=== PATIENT | male | born 1955 | race Hispanic/Latino ===

== ENCOUNTER 2017-03-13 19:30 | Outpatient (CLI) | payer OTHER | END 2017-03-13 19:31 | disposition home or self-care (01) | LOC: SLEEPLAB 19:30 | PROVIDERS: ATTEND Internal Medicine | DX: G47.33 Obstructive sleep apnea (adult) (pediatric) (principal); G47.10 Hypersomnia, unspecified; I25.10 Atherosclerotic heart disease of native coronary artery without angina pectoris; E11.9 Type 2 diabetes mellitus without complications; G47.00 Insomnia, unspecified; I48.91 Unspecified atrial fibrillation; I10 Essential (primary) hypertension; R06.83 Snoring | CPT/HCPCS: 95811 ==

== ENCOUNTER 2017-12-09 23:24 | Inpatient (IN) | payer OTHER ==
[2017-12-10 01:18] LABS: CKMB 1.8 ng/mL (0-6.6)
[2017-12-10] MEDS ORDERED: Diltiazem HCl 125 MG, Admixture Fee 1 EACH in Sodium Chloride 0.9% 100 ML IVPB SCH (01:30)
[2017-12-10] MEDS ORDERED: Digoxin 0.5 MG/2 ML AMP ONE (02:48)
[2017-12-10] MEDS ORDERED: Ondansetron HCl/PF 4 MG/2 ML Vial IVP PRN ×2 (06:52→07:45)
[2017-12-10] MEDS ORDERED: Ondansetron ODT 4 MG TAB PO PRN ×2 (06:53→07:45)
[2017-12-10] MEDS ORDERED: Lactated Ringer's 1,000 ML IV SCH (07:00)
[2017-12-10 07:09] VITALS: BMI 32.6
[2017-12-10] MEDS ORDERED: Digoxin 0.5 MG/2 ML AMP SLOW IVP SCH (07:30)
[2017-12-10] MEDS ORDERED: cloNIDine 0.1 MG TAB PO PRN (07:45)
[2017-12-10] MEDS ORDERED: Dextrose 5% in Water 1,000 ML IV PRN (07:45)
[2017-12-10] MEDS ORDERED: Dextrose 50% Abboject 50 ML SYRINGE SLOW IVP PRN (07:45)
[2017-12-10] MEDS ORDERED: HumaLOG 300 UNITS/3 ML VIAL SC PRN ×2 (07:45)
[2017-12-10] MEDS ORDERED: Labetalol HCl 100 MG/20 ML VIAL SLOW IVP PRN (07:45)
[2017-12-10] MEDS ORDERED: Acetaminophen 325 MG TAB PO PRN (07:45)
--- NOTE | 2017-12-10 08:31 | HP ---
PRIMARY CARE PHYSICIAN: Dr. Esther Gordillo CHIEF COMPLAINT: Rapid heartbeat. HISTORY OF PRESENT ILLNESS: Mr. Deutsch is a very pleasant 62-year-old gentleman that has a history of atrial fibrillation as well as coronary artery disease. He has had a coronary artery bypass graftin g back in October of last year. He says he was doing fine since his surgery. He has seen Dr. Bruce in the last 3 months and had a recent nuclear stress test which was negative in the past month. He say s he was just sitting down watching TV and he usually checks his heart rate fairly regularly. He has a Fitbit and he noticed that his heart rate was in the 150s. At that time, he was completely asympt omatic. He did not have any chest pain, no shortness of breath, no dizziness, no lightheadedness, no nausea, no vomiting, and because of his heart rate he went to the emergency room in [place]. He w as found to be in atrial fibrillation with rapid ventricular response. He was placed on a Cardizem d rip and he was transferred here for further evaluation. While in the ER; however, his blood pressure dropped on Cardizem. It went from about the 140s systolic down into the 80s and 90s and for this re ason the Cardizem drip was discontinued. Currently, his heart rate is back in the 150s and he is not on any medications for it. He denies any PND or orthopnea. He is generally fairly sedentary. He s ays that he has a house in which there are stairs in the house one flight, which he just goes up and down, maybe twice during the day and he does have noticed an increase in his heart rate, but no other symptoms with that. REVIEW OF SYSTEMS: All systems were reviewed and are negative except for that mentioned in the histo ry of present illness. PAST MEDICAL HISTORY: Significant for atrial fibrillation, chronic diastolic heart failure, coronary artery disease, diabetes mellitus, and hyperlipidemia. PAST SURGICAL HISTORY: He has had a bypass surgery in 10/2016, stents placed to the legs as well as eye surgery. ALLERGIES: No known drug allergies. SOCIAL HISTORY: He is a former smoker. He quit before his bypass surgery a year ago. Denies any al cohol use. He is . CODE STATUS: As far as code status, he wants CPR, but does not want to be placed on a ventilator. FAMILY HISTORY: Significant for coronary artery disease in his mother. MEDICATIONS: Aspirin 81 mg a day, Lipitor 20 mg daily, Pletal 100 mg twice a day, Benadryl 25 mg as needed. Latanoprost eyedrops 0.005% in both eyes at bedtime, lisinopril 20 mg twice a day, Farxiga 1 0 mg daily, Lasix 20 mg as needed, metformin 1000 mg twice daily, glimepiride 4 mg daily, omeprazole 40 mg daily, carvedilol 6.25 mg twice daily, and timolol eyedrops 0.05% daily. PHYSICAL EXAMINATION: GENERAL: He is alert and oriented. He appears to be in no acute distress. He is well-developed and well-nourished. VITAL SIGNS: Blood pressure was approximately 125/50, heart rate is 150, respiratory rate is 16, and he is afebrile. HEENT: Pupils are equal, round, and reactive. Extraocular muscles are intact. Sclerae are anicteri c. Throat; no erythema, no exudates. NECK: No adenopathy, no bruits. LUNGS: Clear to auscultation. There is no wheezing, no rales. CARDIOVASCULAR: He has got a rapid heartbeat. It is irregular. There are no murmurs, clicks or rub s. ABDOMEN: Obese, it is soft, it is nontender, nondistended. Positive for bowel sounds. There is no rebound or guarding. EXTREMITIES: There is no clubbing, cyanosis, no edema. NEUROLOGIC: The exam is nonfocal. SKIN AND INTEGUMENT: No skin changes. No rash. LABORATORY RESULTS: His lab results from the [place] [facility] were reviewed. His sodium was 140, potassium 4.4, chloride is 101, CO2 is 26, BUN of 24, creatinine 1.3, glucose is 159, calcium 1 0.4, magnesium 1.9, total protein was elevated at 9.1. White blood cell count 8.7, hemoglobin 15.7, hematocrit is 46.7, platelet count is 192. D-dimer was 0.02, 0.26. He had an EKG which was atrial f ibrillation with a heart rate of around 150. Chest x-ray was reported as being negative. ASSESSMENT AND PLAN: 1. This is a pleasant 62-year-old gentleman who presents to the emergency room with atrial fibrillat ion with rapid ventricular response. He is asymptomatic from this. Currently, hemodynamically stabl e even though his heart rate is in the 150s. He is being admitted to the [facility] [place]. Since his blood pres sure dropped on Cardizem we will give him IV digoxin for now and Cardiology will be consulted for fur ther recommendations. If necessary, he may require amiodarone. 2. Diabetes mellitus, we will hold on metformin in the event that he needs a contrast study. He can continue his own Farxiga and glimepiride and we will place him on a sliding scale insulin. 3. The patient has a history of atrial fibrillation, but was not on anticoagulation. This may have been by his choice. 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 4. We will continue a PPI as he had been on omeprazole before and place him on deep venous thrombosi s prophylaxis. Further recommendations are to follow.
[2017-12-10] MEDS ORDERED: Non-Formulary Item 1 EACH (Dapagliflozin Propanediol [Farxiga] 10 MG) PO SCH (09:00)
[2017-12-10] MEDS: Lisinopril 20 MG TAB PO SCH (09:00)
[2017-12-10] MEDS: Docusate 100 MG CAP PO SCH ×2 (09:00→20:29)
[2017-12-10] MEDS ORDERED: Enoxaparin Sodium 30 MG/0.3 ML SYRINGE SC SCH (09:00)
[2017-12-10] MEDS ORDERED: FARXIGA 10 MG PO SCH (09:00)
[2017-12-10] MEDS: Aspirin 81 mg Enteric Coated Tablet PO SCH (09:01)
[2017-12-10] MEDS: Carvedilol 6.25 MG TAB PO SCH ×2 (09:01→20:29)
[2017-12-10] MEDS: Glimepiride 4 MG TAB PO SCH (09:01)
[2017-12-10] MEDS: Atorvastatin Calcium 20 MG TAB PO SCH (09:12)
[2017-12-10] MEDS: Cilostazol 100 MG TAB PO SCH ×2 (09:20→17:04)
[2017-12-10] MEDS ORDERED: Amiodarone In Dextrose 200 ML IVPB SCH (12:30)
--- NOTE | 2017-12-10 12:46 | CON ---
DATE OF CONSULTATION: 12/10/2017 REASON FOR CONSULTATION: Atrial flutter. HISTORY OF PRESENT ILLNESS: Mr. Deutsch is a very pleasant 62-year-old white gentleman who comes to [facility] for tachycardia. He was at home watching TV feeling at his normal baseline. He clicked t he button on his Fitbit to see what his heart was doing and he noted that his heart rate was 150. He did not really feel palpitations. He just hit the Fitbit every now and then. He got his blood pres sure cuff, his blood pressure was fine in the 130s, but his heart rate remained in the 150s, so he de cided to come in for evaluation. He was brought in and was found to be in atrial flutter, heart rate in the 150s, so he was started on a Cardizem drip which made him hypotensive, did not really slow hi m down that much, so he was admitted to the [facility] for further evaluation and care. He is otherwise cu rrently asymptomatic. He is just lying on the bed with no palpitations, no shortness of breath. He is going really fast. No chest pain, tightness or pressure. He recently had a stress test in the [facility] which showed an EF of 45% with an inferior scar, but no reversible ischemia. PAST MEDICAL HISTORY: 1. History of paroxysmal atrial fibrillation. 2. Ischemic cardiomyopathy. 3. Status post bypass surgery. 4. Type 2 diabetes. 5. Hyperlipidemia. PAST SURGICAL HISTORY: 1. CABG in 10/2016. 2. Peripheral vascular disease, stents on the legs in the past. 3. Eye surgery. OUTPATIENT MEDICATIONS: 1. Aspirin 81 a day. 2. Lipitor 20 mg. 3. Pletal 100 mg twice a daily. 4. Benadryl. 5. Latanoprost eye drops. 6. Lisinopril 20 mg b.i.d. 7. Farxiga. 8. Lasix 20 mg p.r.n. 9. Metformin 1000 mg b.i.d. 10. Glimepiride 4 mg daily. 11. Omeprazole. 12. Carvedilol 6.25 mg b.i.d. 13. Timolol eyedrops. ALLERGIES: No known drug allergies. SOCIAL HISTORY: Former smoker, quit a year after his bypass surgery. No alcohol or drugs. FAMILY HISTORY: Coronary disease in his mother. REVIEW OF SYSTEMS: A 12-point review of systems was done and is all negative unless stated in the hi story of present illness. PHYSICAL EXAMINATION: VITAL SIGNS: Temperature 97.8, pulse 150, respiratory rate 15, satting 100% on room air, blood press ure 115/77. GENERAL: Awake, alert, oriented x3, in no distress. HEENT: Normocephalic, atraumatic. NECK: Supple. LUNGS: Clear. CARDIOVASCULAR: S1, S2, no S3, S4. There is a heart rate in the 150s, tachycardic and irregular. ABDOMEN: Soft, positive bowel sounds. EXTREMITIES: No edema. SKIN: Warm and dry. LABORATORY WORK: Reviewed. CK-MB and troponins were unremarkable. Glucose was 221. Metabolic prof ile on 12/09/2017 in [place] shows a BUN 24, creatinine 1.3, sodium 140, potassium 4.4, chloride 10 1, CO2 26, calcium 10.4, magnesium 1.9, total bilirubin, AST, ALT, alkaline phosphatase are all withi n normal limits. Albumin was 4.7. Troponin was normal in [place] x1. Normal x1 here. CBC with a white count of 8, hemoglobin of 15, hematocrit 46, platelet count 192. TSH was 1.97. D-dimer was a ctually on the low side, a normal INR. Chest x-ray showed no findings. EKG was reviewed; atrial flutter with 2:1 block. ASSESSMENT AND PLAN: Atrial flutter with 2:1 AV block. We will plan on starting him on amiodarone d rip and plans to do a KAVITA cardioversion in the morning. He has had a left atrial appendage ligation, so the KAVITA is just being done to confirm that he does not require long-term anticoagulation as we merritt ve never taken a closer look at the appendage since his surgery. I will start him on Eliquis at 5 mg b.i.d., first dose tonight just in case he does have a flow throughout appendage. He will need to b e on anticoagulation longer term. Otherwise, hopefully he will convert with the amiodarone drip and we will not have to do a cardioversion. Otherwise we have spoken at length about this and he agrees to proceed. Thank you for letting us participate in the care of your patient. We will follow.
[2017-12-10] MEDS: Amiodarone HCl 450 MG, Admixture Fee 1 EACH in Dextrose 5% in Water 250 ML IVPB SCH ×2 (13:10→20:33)
[2017-12-10 13:46] LABS: ALT (SGPT) 21 U/L (8-55); AST (SGOT) 19 U/L (5-34); Albumin 4.2 g/dL (3.4-4.8); Alkaline Phosphatase 72 U/L (40-150); Bilirubin, Direct 0.3 mg/dL (0.1-0.3); Magnesium 1.7 mg/dL (1.6-2.6); Potassium 4.6 mmol/L (3.5-5.1); Protein, Total 7.8 g/dL (5.8-8.1)
[2017-12-10] MEDS: Apixaban 5 MG TAB PO SCH (20:29)
[2017-12-10] MEDS: FARXIGA 10 MG PO SCH (20:29)
[2017-12-11] MEDS: Lisinopril 20 MG TAB PO SCH ×2 (00:11→08:52)
[2017-12-11 04:15] LABS: #Basophils 0.1 thou/uL (0.0-0.2); #Eosinphils 0.1 thou/uL (0.0-0.7); #Monocytes 0.6 thou/uL (0.11-0.59); %Basophils 0.9 % (0.0-1.0); %Eosinophils 1.6 % (0.0-10.0); %Lymphocytes 29.5 % (21.0-51.0); %Monocytes 8.8 % (0.0-10.0); %Neutrophils 59.2 % (42.0-75.0); Hemoglobin 13.5 g/dL (14.0-18.0); Mean Corpuscular Hemoglobin 31.5 pg (27.0-31.0); Mean Corpuscular Volume 89.9 fL (78.0-98.0); Mean Platelet Volume 7.9 fL (7.4-10.4); Platelet Count 138 thou/uL (130-400); RBC Distribution Width 12.5 % (11.5-14.5); Red Blood Cell (RBC) Count 4.29 mill/uL (4.70-6.10); White Blood Cell (WBC) Count 6.8 thou/uL (4.8-10.8)
[2017-12-11 04:32] LABS: Anion Gap 16 mmol/L (10-20); BUN (Urea Nitrogen) 18 mg/dL (8.4-25.7); Calc. Creatinine Clearance 110 mL/min (70-130); Calcium 8.9 mg/dL (7.8-10.44); Carbon Dioxide 19 mmol/L (23-31); Chloride 107 mmol/L (98-107); Estimated GFR-MDRD 79; Glucose 203 mg/dL (80-115); Potassium 4.4 mmol/L (3.5-5.1); Sodium 138 mmol/L (136-145)
[2017-12-11] MEDS: Carvedilol 6.25 MG TAB PO SCH (06:28)
[2017-12-11] MEDS ORDERED: PROPOFOL 40 ML ONE (07:19)
[2017-12-11] MEDS ORDERED: Lidocaine 2% Jelly 5 ML TUBE ONE (07:19)
[2017-12-11] MEDS: Cilostazol 100 MG TAB PO SCH (08:50)
[2017-12-11] MEDS: Docusate 100 MG CAP PO SCH (08:52)
[2017-12-11] MEDS: Aspirin 81 mg Enteric Coated Tablet PO SCH (08:52)
[2017-12-11] MEDS: Atorvastatin Calcium 20 MG TAB PO SCH (08:52)
[2017-12-11] MEDS: Glimepiride 4 MG TAB PO SCH (08:53)
[2017-12-11] MEDS: Apixaban 5 MG TAB PO SCH (08:53)
[2017-12-11] MEDS: FARXIGA 10 MG PO SCH (08:53)
[2017-12-11] MEDS ORDERED: Amiodarone 200 MG TAB PO SCH (09:00)
[2017-12-11 11:24] VITALS: BP 145/89; TEMP 98.7
[2017-12-11] MEDS ORDERED: PROPOFOL 200 MG/20 ML VIAL ONE (13:49)
--- NOTE | 2017-12-11 18:29 | PDOC.PN ---
- Subjective Encounter Start Date: 12/11/17 Encounter Start Time: 09:45 Subjective: Patient is lying in bed comfortably with by the bedside -: Per patient, he feels well this morning. Not in distress -: Denies Fever, Nausea, Vomiting, Chest pain, Palpitation - Objective Resuscitation Status: Resuscitation Status DNI:No Intubation MAR Reviewed: Yes Vital Signs & Weight: Vital Signs (12 hours) Temp Pulse Resp BP BP Pulse Ox 12/11/17 11:23 98.7 F 98 16 145/89 H 100 12/11/17 08:52 141/80 H 12/11/17 08:45 97.6 F 108 H 18 95 12/11/17 08:30 97.6 F 108 H 18 141/80 H 95 Weight Weight 214 lb 14.4 oz I&O: 12/10/17 12/11/17 12/12/17 06:59 06:59 06:59 Intake Total 1923 60 Output Total 3400 Balance -1477 60 Result Diagrams: 12/11/17 04:04 12/11/17 04:04 Additional Labs: Accuchecks 12/11/17 12/11/17 12/10/17 10:17 06:02 20:55 POC Glucose 236 H 214 H 286 H Phys Exam - Physical Examination HEENT: PERRLA, moist MMs, TM's clear Neck: no JVD Respiratory: no wheezing, no rales, no rhonchi, clear to auscultation bilateral Cardiovascular: RRR, no significant murmur, no rub Gastrointestinal: soft, non-tender, no distention, positive bowel sounds Musculoskeletal: no edema, pulses present Neurological: non-focal, normal sensation, moves all 4 limbs Psychiatric: normal affect, A&O x 3 Skin: no rash, normal turgor Dx/Plan (1) Atrial flutter with rapid ventricular response Code(s): I48.92 - UNSPECIFIED ATRIAL FLUTTER Status: Acute Comment: S/P KAVITA and Amiodarone IV Continue Eliquis. Monitor on tele s/p LA appendage ligation (2) Atrial fibrillation with RVR Code(s): I48.91 - UNSPECIFIED ATRIAL FIBRILLATION Status: Resolved (3) CAD (coronary artery disease) Code(s): I25.10 - ATHSCL HEART DISEASE OF [place] CORONARY ARTERY W/O ANG PCTRS Status: Chronic Qualifiers: Coronary Disease-Associated Artery/Lesion type: [place] artery [place] vs. transplanted heart: [place] heart Associated angina: without angina Qualified Code(s): I25.10 - Atherosclerotic heart disease of [place] coronary artery without angina pectoris Comment: Continue patient ASA, simvastatin, carvedilol (4) Diabetes mellitus type 2 in obese Code(s): E11.9 - TYPE 2 DIABETES MELLITUS WITHOUT COMPLICATIONS; E66.9 - OBESITY , UNSPECIFIED Status: Chronic Comment: continue Diabetic medications (5) Hypertension Code(s): I10 - ESSENTIAL (PRIMARY) HYPERTENSION Status: Chronic Qualifiers: Hypertension type: essential hypertension Qualified Code(s): I10 - Essential (primary) hypertension Comment: continue Lisinopril (6) S/P CABG x 4 Status: Chronic Comment: Continue ASA, Atorvastatin, lisinopril (7) Acute on chronic diastolic (congestive) heart failure Code(s): I50.33 - ACUTE ON CHRONIC DIASTOLIC (CONGESTIVE) HEART FAILURE Status : Acute Comment: Lisinopril, carvedilol, atrovastatin (8) PVD (peripheral vascular disease) Code(s): I73.9 - PERIPHERAL VASCULAR DISEASE, UNSPECIFIED Status: Chronic Comment: continue cilostazol - Plan cont current plan of care, plan discussed w/ family * . DVT prophylaxis will continue patient on eliquis - Discharge Day Minutes spent coordinating discharge of patient: 35 Review of Systems - Medications/Allergies Allergies/Adverse Reactions: Allergies Allergy/AdvReac Type Severity Reaction Status Date / Time No Known Allergies Allergy Verified 01/18/17 22:48
--- NOTE | 2017-12-11 21:03 | ECHO ---
DATE OF SERVICE: 12/11/2017. PREPROCEDURE DIAGNOSIS: Atrial flutter. Transesophageal echo was performed to evaluate for left atrial thrombus. He has had a ligation, so w e were trying to confirm if there is flow into the left atrial appendage. The Anesthesiology department provided with sedation for the patient. Please see their notes for det ails. After adequate sedation was achieved, the transesophageal probe was inserted into the mouth and into the esophagus without problems. Multiplanar views were then obtained. Left ventricle appears to be normal size with normal wall thickness. Systolic function is estimated about 50% with no regional wall motion abnormalities. Left atrium is dilated. Left atrial appendage seems to be ligated, however, there is a very small amount of flow in and out o f the left atrial appendage. There was no thrombus present. Left interatrial septum has lipomatous hypertrophy. Cannot completely rule out a small PFO. Right atrium is mildly dilated. Right ventricle is normal size with normal systolic function. Aortic root is normal size. Aortic valve is sclerotic but opens well, no stenosis or regurgitation. Mitral valve is structurally normal. There is mild MR, no stenosis. Tricuspid valve is structurally normal. There is mild TR, no stenosis. Pulmonary valve is structurally normal. Mild PI, no stenosis. Thoracic aorta with grade III/V atherosclerotic disease. CONCLUSIONS: 1. Systolic function 50%. 2. Dilated left atrium. 3. Left atrial appendage is ligated, however, there is a small amount of flow in and out of the appe ndage, no thrombus. 4. Mild MR. 5. Mild TR. 6. Mild PI. 7. Lipomatous hypertrophy of the interatrial septum with a small PFO. 8. Grade III/V atherosclerotic disease.
--- NOTE | 2017-12-11 21:27 | OP ---
DATE OF SERVICE: 12/11/2017. PROCEDURES PERFORMED Direct current synchronized cardioversion. SUMMARY: The patient is a pleasant 62-year-old gentleman who comes to the PACU for a planned KAVITA car dioversion. He had a KAVITA previously. Please see report for details. After it was evidence that he had a small patent left atrial appendage with flow in and out of it, bu t no thrombus, decision was made to resume plans of cardioversion, so pads were placed. The Anesthes iology Department provided with sedation. Please see their notes for details. After adequate sedati on was achieved, one single synchronized shock at 100 joules was delivered successfully converting hi m from atrial flutter into sinus rhythm. Patient tolerated the procedure well. RECOMMENDATIONS: 1. Will switch his amiodarone to p.o., We will let the drip until noon and will give him his first p. o. dose this morning and do 400 mg b.i.d. for 10 days and then down to 200 mg a day. 2. Continue Eliquis for now as he does have a patent left atrial appendage. 3. May be discharged home later today. 4. We will follow up in the office in 1 month.
--- NOTE | 2017-12-12 14:47 | DIS ---
DATE OF ADMISSION: 12/10/2017 DATE OF DISCHARGE: 12/11/2017 DISCHARGE DIAGNOSES: 1. Atrial flutter with rapid ventricular response. 2. Atrial fibrillation with rapid ventricular response. 3. CAD (coronary artery disease). 4. Diabetes mellitus type 2. 5. Hypertension. 6. Status post coronary artery bypass graft x4. 7. Acute on chronic diastolic congestive heart failure. 8. Peripheral vascular disease. PROCEDURES AND THERAPIES: Transesophageal echo. CONSULTATION: Cardiology, Dr. Bruce. LABORATORY DATA: WBC 6.8, hemoglobin 13.5, hematocrit of 38.6, platelets 138. Chemistry: Sodium is 138, potassium is 4.4, chloride is 107, CO2 is 19, BUN is 18, creatinine is 0.97, glucose of 203. PERTINENT HISTORY: Mr. Deutsch is a 62-year-old gentleman who came in with atrial fibrillation with ra pid ventricular response. The patient states that he checked his heart rate and his heart rate was v darin fast at 160s, therefore, the patient decided to come to the hospital to be evaluated. In the [facility], the patient was started on Cardizem. However, the patient's blood pressure dropped. Therefor e, the patient was given digoxin and Cardiology was consulted. Cardiology requested the patient rece carlitos IV amiodarone and the patient was scheduled for KAVITA. The patient underwent KAVITA in the morning an d Cardiology switched the patient from IV amiodarone to p.o. amiodarone. The patient was started on his Eliquis dose and the patient was instructed to follow up outpatient with Cardiology and his prima care physician. DISCHARGE CONDITION: The patient was discharged in stable condition. DISPOSITION: The patient was discharged and during the time of discharge, the patient was advised to follow up with primary care physician within 3 days. All discharge encounter was approximately 30 m inutes. The patient was discharged home with his .
== END 2017-12-11 15:49 | disposition home or self-care (01) | DRG 309 ==
LOC: ERS 23:24 → IMCU/EMU 12-10 07:03
PROVIDERS: ADMIT Family Medicine; ATTEND Family Medicine
PROC: 5A2204Z Restoration of Cardiac Rhythm, Single (ICD-10-PCS; principal; 2017-12-11)
PROC: B246ZZ4 Ultrasonography of Right and Left Heart, Transesophageal (ICD-10-PCS; 2017-12-11)
DX: I48.91 Unspecified atrial fibrillation (principal); I50.32 Chronic diastolic (congestive) heart failure; I25.10 Atherosclerotic heart disease of native coronary artery without angina pectoris; E78.5 Hyperlipidemia, unspecified; I25.5 Ischemic cardiomyopathy; I11.0 Hypertensive heart disease with heart failure; E11.51 Type 2 diabetes mellitus with diabetic peripheral angiopathy without gangrene; I48.92 Unspecified atrial flutter; Z79.82 Long term (current) use of aspirin; Z79.84 Long term (current) use of oral hypoglycemic drugs; Z95.820 Peripheral vascular angioplasty status with implants and grafts; Z87.891 Personal history of nicotine dependence; Z95.1 Presence of aortocoronary bypass graft; Z82.49 Family history of ischemic heart disease and other diseases of the circulatory system
CPT/HCPCS: 36415; 36416; 80048; 80076; 82553; 83735; 84132; 84443; 84484; 85025; 92960; 93005; 93312; A4216; J0282; J1160; J1650; J2704; J7050; J7070

== ENCOUNTER 2018-02-19 11:56 | Outpatient (CLI) | payer OTHER ==
[2018-02-19 13:30] LABS: Hemoglobin 14.7 g/dL (14.0-18.0); Mean Corpuscular HGB CONC 32.9 g/dL (32.0-36.0); Mean Corpuscular Hemoglobin 31.1 pg (27.0-31.0); Mean Corpuscular Volume 94.4 fL (78.0-98.0); Mean Platelet Volume 8.7 fL (7.4-10.4); Platelet Count 171 thou/uL (130-400); RBC Distribution Width 12.7 % (11.5-14.5); Red Blood Cell (RBC) Count 4.73 mill/uL (4.70-6.10); White Blood Cell (WBC) Count 8.9 thou/uL (4.8-10.8)
[2018-02-19 13:38] LABS: INR-International Normal Ratio 1.1; PTT 26.9 SEC (22.9-36.1); Prothrombin Time 14.4 SEC (12.0-14.7)
[2018-02-19 14:02] LABS: Anion Gap 16 mmol/L (10-20); BUN (Urea Nitrogen) 22 mg/dL (8.4-25.7); Calc. Creatinine Clearance 0 mL/min (70-130); Calcium 9.5 mg/dL (7.8-10.44); Carbon Dioxide 25 mmol/L (23-31); Chloride 103 mmol/L (98-107); Estimated GFR-MDRD 69; Glucose 138 mg/dL (80-115); Potassium 4.6 mmol/L (3.5-5.1); Sodium 139 mmol/L (136-145)
== END 2018-02-19 11:57 | disposition home or self-care (01) ==
LOC: LABBT 11:56
PROVIDERS: ATTEND Internal Medicine Cardiovascular Disease
DX: Z01.818 Encounter for other preprocedural examination (principal); I48.92 Unspecified atrial flutter
CPT/HCPCS: 80048; 85027; 85610; 85730; 93005; 93010

== ENCOUNTER 2018-02-24 08:45 | Day surgery (SDC) | payer OTHER ==
[2018-02-19 12:12] VITALS: BMI 32.1
[2018-02-24] MEDS ORDERED: Promethazine HCl 25 MG/ML VIAL SLOW IVP PRN (10:34)
[2018-02-24] MEDS ORDERED: Ondansetron HCl/PF 4 MG/2 ML Vial IVP PRN (10:34)
[2018-02-24] MEDS ORDERED: Promethazine HCl 25 MG/ML VIAL IM PRN (10:34)
[2018-02-24] MEDS ORDERED: Lidocaine 1% (PF) 30 ML VIAL ONE (11:41)
[2018-02-24] MEDS ORDERED: Heparin 10,000 UNITS/1 ML VIAL ONE (11:41)
[2018-02-24] MEDS ORDERED: Isoproterenol 0.2 MG/1 ML AMP ONE (11:43)
[2018-02-24] MEDS ORDERED: DOPamine 400 MG/D5W 250 ML 250 ML ONE (11:43)
[2018-02-24] MEDS ORDERED: Propofol 500 MG/50 ML VIAL ONE ×3 (12:31→13:34)
[2018-02-24] MEDS ORDERED: Lisinopril 10 MG TAB ONE ×2 (15:32→15:34)
[2018-02-24] MEDS ORDERED: Carvedilol 3.125 MG TAB ONE (15:32)
[2018-02-24] MEDS ORDERED: PROPOFOL 200 MG/20 ML VIAL ONE (16:27)
--- NOTE | 2018-02-25 08:55 | OP ---
DATE OF PROCEDURE: 02/24/2018 SURGEON: Dr. Lennox Khanna REFERRING PHYSICIAN: Dr. Espinoza Bruce PROCEDURE: Electrophysiology study and radiofrequency ablation. REASON FOR PROCEDURE: Mr. Deutsch is a 62-year-old man with prior history of coronary artery disease w ho underwent a bypass surgery in 10/2016 and developed atrial flutter which required amiodarone for s uppression. Recurrent episodes are seen. He was noted to have maybe atrial fibrillation as well, al though mostly atrial flutter was documented. He opted for undergoing a right-sided atrial flutter ci rcuit ablation. The patient is in sinus rhythm at the time of the ablation and his blood thinner med ication was stopped a day ago. PROCEDURE: The patient received deep sedation by Anesthesia specialist. After adequate level of sed ation achieved, the right femoral venous area was prepped, draped and anesthetized using subcutaneous lidocaine under ultrasound guidance, the right femoral veins were cannulated x2. An 8 [place] SF Pre face sheath was introduced into the right femoral veins. The ThermoCool SFT catheter was advanced to the short sheath to the right atrium where right atrial map was obtained creating the His cloud CS o ff and CS itself was imaged or mapped by the catheter. Following that a Duodeca catheter was advance d via deep rectus sheath and it was placed in the CS in the right atrial position. A full EP study w as performed with the following findings. The baseline rhythm was sinus rhythm with cycle length of 644 milliseconds, FL 290 milliseconds, QRS 669 milliseconds, QT 335 milliseconds, AH voltage , HV 58 milliseconds. Antegrade Wenckebach cy killian length was measured to be 360 milliseconds. AV cassidy ERP was measured to be 600/220 retrograde W enckebach cycle was 550 milliseconds. Central retrograde VA conduction was seen. No definite dual A V cassidy physiology was documented. With burst atrial pacing we were able to induce atrial flutter wi th atrial cycle length 220 milliseconds. A typical appearing CS activation was noted and a lateral C S pacing yielded long post-pacing interval after entrainment. Post-pacing interval from the isthmus yielded post-pacing intervals close to the tachycardia cycle length. Following that a cavotricuspid isthmus ablation was performed with a total of 2 ablations with duration 2 minutes and 58 seconds wit h a 40 brower in average and maximum temperature is 34, average 22 . is 184 mm 122 document ed. During ablation the atrial flutter terminated. Following that remapping of the isthmus and the right atrium was performed during a proximal CS pacing. The adequate transisthmus block was demonstr ated by transisthmus time increasing to 160 milliseconds longest by the ablation line suggestive of a t least unilateral block. Following that dopamine was administered and the flutter line was reassessed. It was found to be pat ent, repeated burst atrial pacing did not reinduce atypical atrial flutter, but transient atypical fl utter/fibrillation was seen which quickly spontaneously terminated. CONCLUSION: 1. Inducible typical isthmus-dependent atrial flutter. 2. Cavotricuspid isthmus ablation terminating the atrial flutter and creating unilateral isthmus blo ck with no reinducibility. 3. Normal sinus and AV cassidy function noted with a sinus node recovery time 209 milliseconds, AV Jia ckebach 300 milliseconds. 4. No dual AV cassidy physiology and central retrograde VA conduction is seen and no other arrhythmia was induced. PLAN: Continue short term anticoagulation. Consider stopping after a month if no recurrent atrial f lutter/fibrillation is seen. If atrial fibrillation occurs in the future after complete amiodarone w ashout, consider pulmonary venous isolation procedure.
--- NOTE | 2018-02-26 07:49 | EKG ---
Test Reason : Blood Pressure : / mmHG Vent. Rate : 085 BPM Atrial Rate : 085 BPM P-R Int : 142 ms QRS Dur : 094 ms QT Int : 366 ms P-R-T Axes : 071 078 234 degrees QTc Int : 435 ms Normal sinus rhythm Abnormal ECG When compared with ECG of 19-FEB-2018 12:40, (Unconfirmed) No significant change was found Confirmed by JOSE ELIAS HERNANDEZ ([id number]) on 02/26/2018 7:49:14 AM Referred By: YARELI Confirmed By:JOSE ELIAS HERNANDEZ
== END 2018-02-24 16:53 | disposition home or self-care (01) ==
LOC: CCL 08:45
PROVIDERS: ATTEND Internal Medicine Cardiovascular Disease
PROC: 02K83ZZ Map Conduction Mechanism, Percutaneous Approach (ICD-10-PCS; principal; 2018-02-24)
PROC: 02583ZZ Destruction of Conduction Mechanism, Percutaneous Approach (ICD-10-PCS; principal; 2018-02-24)
PROC: 4A0234Z Measurement of Cardiac Electrical Activity, Percutaneous Approach (ICD-10-PCS; principal; 2018-02-24)
PROC: 4A023FZ Measurement of Cardiac Rhythm, Percutaneous Approach (ICD-10-PCS; principal; 2018-02-24)
DX: I48.4 Atypical atrial flutter (principal); I48.1 Persistent atrial fibrillation; I25.10 Atherosclerotic heart disease of native coronary artery without angina pectoris; I10 Essential (primary) hypertension; E11.9 Type 2 diabetes mellitus without complications; Z79.01 Long term (current) use of anticoagulants; Z79.82 Long term (current) use of aspirin; Z79.84 Long term (current) use of oral hypoglycemic drugs; Z79.899 Other long term (current) drug therapy; Z95.1 Presence of aortocoronary bypass graft
CPT/HCPCS: 76942; 93005; 93010; 93613; 93623; 93653; C1730; C1731; C1769; J1265; J1644; J2001; J2704

== ENCOUNTER 2019-08-03 14:24 | Inpatient (IN) | payer OTHER, MEDICARE ==
[2019-08-03] MEDS ORDERED: Pantoprazole 40 MG VIAL ONE ×2 (14:52→14:56)
[2019-08-03 15:03] LABS: #Eosinphils 0.1 thou/uL (0.0-0.7); #Lymphocytes 1.6 thou/uL (1.20-3.40); #Monocytes 0.7 thou/uL (0.11-0.59); #Neutrophils 6.2 thou/uL (1.40-6.50); %Basophils 0.1 % (0.0-1.0); %Eosinophils 0.9 % (0.0-10.0); %Lymphocytes 18.8 % (21.0-51.0); %Monocytes 7.7 % (0.0-10.0); %Neutrophils 72.6 % (42.0-75.0); Hemoglobin 8.1 g/dL (14.0-18.0); Mean Corpuscular HGB CONC 33.8 g/dL (32.0-36.0); Mean Corpuscular Hemoglobin 30.5 pg (27.0-31.0); Mean Corpuscular Volume 90.2 fL (78.0-98.0); Platelet Count 182 thou/uL (130-400); RBC Distribution Width 13.4 % (11.5-14.5); Red Blood Cell (RBC) Count 2.67 mill/uL (4.70-6.10); White Blood Cell (WBC) Count 8.6 thou/uL (4.8-10.8)
[2019-08-03 15:14] LABS: INR-International Normal Ratio 1.3; PTT 26.9 SEC (22.9-36.1); Prothrombin Time 16.1 SEC (12.0-14.7)
[2019-08-03 15:28] LABS: ALT (SGPT) 13 U/L (8-55); AST (SGOT) 12 U/L (5-34); Albumin 4.2 g/dL (3.4-4.8); Alkaline Phosphatase 72 U/L (40-110); Anion Gap 14 mmol/L (10-20); BUN (Urea Nitrogen) 30 mg/dL (8.4-25.7); Bilirubin, Total 0.4 mg/dL (0.2-1.2); Calc. Creatinine Clearance 0 mL/min (70-130); Calcium 8.9 mg/dL (7.8-10.44); Carbon Dioxide 22 mmol/L (23-31); Chloride 107 mmol/L (98-107); Estimated GFR-MDRD 73; Globulin 2.8 g/dL (2.4-3.5); Glucose 138 mg/dL (80-115); Potassium 4.7 mmol/L (3.5-5.1); Sodium 138 mmol/L (136-145)
[2019-08-03] MEDS ORDERED: HumaLOG 300 UNITS/3 ML VIAL SC PRN (16:50)
[2019-08-03] MEDS ORDERED: Dextrose 50% Abboject 50 ML SYRINGE SLOW IVP PRN (16:50)
[2019-08-03] MEDS ORDERED: Dextrose 5% in Water 1,000 ML IV PRN (16:50)
[2019-08-03 17:23] LABS: #Lymphocytes 1.5 thou/uL (1.20-3.40); #Monocytes 0.5 thou/uL (0.11-0.59); #Neutrophils 6.8 thou/uL (1.40-6.50); %Basophils 0.2 % (0.0-1.0); %Eosinophils 0.5 % (0.0-10.0); %Lymphocytes 17.4 % (21.0-51.0); %Monocytes 5.1 % (0.0-10.0); %Neutrophils 76.8 % (42.0-75.0); Hemoglobin 8.4 g/dL (14.0-18.0); Mean Corpuscular HGB CONC 33.8 g/dL (32.0-36.0); Mean Corpuscular Hemoglobin 30.5 pg (27.0-31.0); Mean Corpuscular Volume 90.2 fL (78.0-98.0); Mean Platelet Volume 8.2 fL (7.4-10.4); Platelet Count 194 thou/uL (130-400); RBC Distribution Width 13.4 % (11.5-14.5); Red Blood Cell (RBC) Count 2.76 mill/uL (4.70-6.10); White Blood Cell (WBC) Count 8.9 thou/uL (4.8-10.8)
[2019-08-03 18:02] VITALS: BMI 31.1
[2019-08-03] MEDS: Sodium Chloride 0.9% 1,000 ML IV SCH (18:20)
[2019-08-03 21:32] LABS: #Eosinphils 0.1 thou/uL (0.0-0.7); #Lymphocytes 1.9 thou/uL (1.20-3.40); #Monocytes 0.5 thou/uL (0.11-0.59); #Neutrophils 4.3 thou/uL (1.40-6.50); %Basophils 0.4 % (0.0-1.0); %Eosinophils 0.9 % (0.0-10.0); %Monocytes 7.7 % (0.0-10.0); Hemoglobin 7.6 g/dL (14.0-18.0); Mean Corpuscular HGB CONC 33.4 g/dL (32.0-36.0); Mean Corpuscular Hemoglobin 30.5 pg (27.0-31.0); Mean Corpuscular Volume 91.3 fL (78.0-98.0); Mean Platelet Volume 8.5 fL (7.4-10.4); Platelet Count 178 thou/uL (130-400); RBC Distribution Width 13.5 % (11.5-14.5); Red Blood Cell (RBC) Count 2.49 mill/uL (4.70-6.10); White Blood Cell (WBC) Count 6.9 thou/uL (4.8-10.8)
--- NOTE | 2019-08-03 22:29 | CON ---
DATE OF CONSULTATION: 08/03/2019 CHIEF COMPLAINT: Vomited blood. HISTORY OF PRESENT ILLNESS: Mr. Deutsch is a 64-year-old man, who presented to GI Clinic today with black stool and weakness and anemia. He has had fatigue with walking short distances. He is noted to have a drop in his hemoglobin from 14 back in March of 2019 to 9 by July 27, 2019. He has had epigastric burning pain. He has had no prior upper or lower endoscopy. He takes Xarelto and aspirin. His last dose of Xarelto was last night. He has had black stools. Dr. Sanchez saw him in the office today and based on these immediate symptoms, he was initially planning on performing endoscopy today. However, the patient then vomited red blood and dropped his blood pressure down and he was sent on over to the emergency room for stabilization. The patient received fluids and was started on proton pump inhibitor drip. Currently, the patient is feeling better. He has no ongoing pain at this time. PAST MEDICAL HISTORY: Atrial fibrillation, gastroesophageal reflux disease, coronary artery disease, diabetes mellitus, hyperlipidemia, glaucoma, hypertension, sleep apnea, alcohol abuse. PAST SURGICAL HISTORY: Coronary artery bypass graft in 2017. He has had prior coronary stents placed as well. SOCIAL HISTORY: No recent alcohol, tobacco, or drugs. FAMILY HISTORY: Negative for GI malignancy. ALLERGIES: NO KNOWN DRUG ALLERGIES. MEDICATIONS: Prior to admission: 1. Xarelto 20 mg daily. 2. Prilosec 20 mg daily. 3. Metformin. 4. Meclizine. 5. Lisinopril. 6. Latanoprost. 7. Jardiance. 8. Glimepiride. 9. Dorzolamide with timolol. 10. Diphenhydramine. 11. Carvedilol. 12. Brimonidine. 13. Atorvastatin. 14. Aspirin. REVIEW OF SYSTEMS: Negative x10 systems reviewed except as stated in history of present illness. PHYSICAL EXAMINATION: VITAL SIGNS: Temperature 97.7, pulse 95, blood pressure 138/84. GENERAL: He is in no acute distress. Alert and oriented x3. HEENT: Eyes have no scleral icterus. Oropharynx is clear without lesions. No cervical or supraclavicular lymphadenopathy. LUNGS: Clear to auscultation bilaterally. HEART: Regular rate and rhythm without murmur. ABDOMEN: Soft, nontender, and nondistended. Bowel sounds are present. EXTREMITIES: No lower extremity edema. Cranial nerves are grossly intact. LABORATORY DATA: White blood cell count 8.4, hemoglobin 8.1, platelets 182. INR 1.3. Creatinine 1.03, BUN 30, bilirubin 0.4, AST 12, ALT 13, alkaline phosphatase 72, albumin 4.2. IMPRESSION: 1. Upper gastrointestinal bleed presenting with hematemesis and melena and symptomatic anemia. 2. Anemia of acute blood loss. 3. Atrial fibrillation on chronic anticoagulation and aspirin. RECOMMENDATIONS: 1. Proton pump inhibitor drip. 2. Monitor trend of the hemoglobin and transfuse as necessary. His most recent hemoglobin is 7.6, this evening at 8:00 p.m. I will give him a unit of blood now. 3. EGD tomorrow. Job ID: [id number]
[2019-08-03] MEDS ORDERED: Pantoprazole 80 MG in Sodium Chloride 0.9% 100 ML IVPB SCH (23:30)
[2019-08-04 03:10] LABS: #Basophils 0.1 thou/uL (0.0-0.2); #Eosinphils 0.1 thou/uL (0.0-0.7); #Lymphocytes 1.9 thou/uL (1.20-3.40); #Monocytes 0.6 thou/uL (0.11-0.59); #Neutrophils 4.6 thou/uL (1.40-6.50); %Basophils 1.1 % (0.0-1.0); %Eosinophils 0.9 % (0.0-10.0); %Lymphocytes 25.7 % (21.0-51.0); %Monocytes 8.6 % (0.0-10.0); %Neutrophils 63.6 % (42.0-75.0); Hemoglobin 8.5 g/dL (14.0-18.0); Mean Corpuscular HGB CONC 33.7 g/dL (32.0-36.0); Mean Corpuscular Hemoglobin 30.9 pg (27.0-31.0); Mean Corpuscular Volume 91.7 fL (78.0-98.0); Mean Platelet Volume 8.3 fL (7.4-10.4); Platelet Count 168 thou/uL (130-400); Red Blood Cell (RBC) Count 2.75 mill/uL (4.70-6.10); White Blood Cell (WBC) Count 7.2 thou/uL (4.8-10.8)
[2019-08-04 03:25] LABS: Anion Gap 13 mmol/L (10-20); BUN (Urea Nitrogen) 24 mg/dL (8.4-25.7); Calc. Creatinine Clearance 108 mL/min (70-130); Calcium 8.6 mg/dL (7.8-10.44); Carbon Dioxide 23 mmol/L (23-31); Chloride 107 mmol/L (98-107); Estimated GFR-MDRD 83; Glucose 92 mg/dL (80-115); Potassium 4.2 mmol/L (3.5-5.1); Sodium 139 mmol/L (136-145)
--- NOTE | 2019-08-04 05:45 | HP ---
CHIEF COMPLAINT: Hematemesis. HISTORY OF PRESENT ILLNESS: The patient is a 64-year-old male with a history of atrial fibrillation, who is on Xarelto. The patient reported that he had been experiencing black tarry stools over the past week. He only had one per day. He did not have any abdominal pain. He was referred to GI Clinic. He went there today, felt well, in fact, drove from [place] back to [place] before his appointment. While at his appointment, he had some epigastric discomfort and felt a little lightheaded. Subsequently, he had vomiting of blood into a trash can and was subsequently referred directly to the emergency department. He says he is feeling okay now and does not have any current abdominal pain. REVIEW OF SYSTEMS: He has had normal sleep, appetite, and urinary habits. Denies any fevers or chills. He had a little weight loss, but that has been intentional. All other systems were reviewed and were negative except for those things mentioned in the HPI. PAST MEDICAL HISTORY: Notable for atrial fibrillation, coronary artery disease, chronic diastolic heart failure, diabetes mellitus, hyperlipidemia, glaucoma, and peripheral vascular disease. PAST SURGICAL HISTORY: Bypass surgery in 2017. He has arterial stents placed in the lower extremities and he has had surgery for his glaucoma on his eyes. FAMILY HISTORY: Mother had coronary artery disease. He knows nothing about his father as he never met him. SOCIAL HISTORY: Former smoker, quit smoking prior to his heart surgery in 2017. Nondrinker. Nondrug user. He is . He is full code and his would be his surrogate decision maker. CURRENT MEDICATIONS: Include, 1. Xarelto 20 mg p.o. daily. 2. Lisinopril 20 mg b.i.d. 3. Metformin 1000 mg b.i.d. 4. Aspirin 81 mg daily. 5. Atorvastatin 20 mg daily. 6. Cilostazol 100 mg b.i.d. 7. Omeprazole 20 mg daily. 8. Glimepiride 4 mg daily. 9. Latanoprost eyedrops 0.005% one drop both eyes at bedtime. 10. Farxiga 10 mg daily. 11. Lasix 20 mg daily as needed for edema. 12. Carvedilol 6.25 mg p.o. b.i.d. 13. Timolol ophthalmic drops 0.5% one drop OU b.i.d. PHYSICAL EXAMINATION: VITAL SIGNS: BP 115/71, pulse is 92, respirations 18, O2 saturation 99% on room air. GENERAL APPEARANCE: Age-appropriate male obese. He is in no distress. He is awake, alert, oriented, pleasant, and cooperative. HEENT: PERRL. No OP lesions. NECK: Supple and symmetric. HEART: Regular rate and rhythm without murmurs, gallops, or rubs. LUNGS: Clear to auscultation bilaterally with good chest wall expansion and air exchange. ABDOMEN: Soft, nontender, and nondistended. Positive bowel sounds. No masses. No organomegaly. EXTREMITIES: No cyanosis, clubbing, or edema. Peripheral pulses are not palpable by my exam. Otherwise, they are warm and dry. He has some chronic stasis type dermatitis of the lower extremities. PSYCHIATRIC: Normal affect and behavior. NEUROLOGIC: Cranial nerves are intact. Normal cognition. No focal deficits of the extremities. LABORATORY DATA: White count 8.6, hemoglobin 8.1, platelets 182. INR is 1.3, PTT is 26.9. Sodium 138, potassium 3.7, chloride 107, CO2 of 22, BUN 30, creatinine 1.03, glucose 138, calcium 8.9. AST is 12, ALT 13, alkaline phosphatase 72. Albumin 4.2. IMPRESSION AND PLAN: 1. Acute upper gastrointestinal bleed with hematemesis and melena. The patient will be admitted to the hospital and started on a Protonix drip. Consult Gastroenterology. Discussed the case with Dr. Samson. We will put him on clear liquids and make him n.p.o. after midnight with anticipation of endoscopy in the morning. 2. Acute blood loss anemia. We will continue to monitor his hemoglobin counts q.4 hours x3 and transfuse if he gets below 7. We will hold on his blood pressure medications for now, unless he becomes significantly hypertensive. 3. Diabetes mellitus. Accu-Cheks and sliding scale. Holding on his p.o. medications now since he will be generally n.p.o. 4. Coronary artery disease. Continue his aspirin after we get the scope done tomorrow. 5. History of atrial fibrillation, currently in sinus rhythm. Holding his Xarelto. We will resume the carvedilol once he is past the endoscopy. Job ID: [id number]
[2019-08-04] MEDS: Sodium Chloride 0.9% 1,000 ML IV SCH ×2 (05:52→22:36)
[2019-08-04] MEDS: Carvedilol 6.25 MG TAB PO SCH ×2 (05:54→19:58)
[2019-08-04] MEDS ORDERED: PROPOFOL 200 MG/20 ML VIAL ONE (09:17)
[2019-08-04] MEDS: Atorvastatin Calcium 20 MG TAB PO SCH (11:00)
[2019-08-04] MEDS: DorzolamidE/Timolol 2%/0.5% Ophth Soln 10 ml Bottle EA EYE SCH ×2 (11:00→19:58)
[2019-08-04] MEDS ORDERED: Fentanyl 100 MCG/2 ML VIAL ONE (13:07)
[2019-08-04] MEDS ORDERED: Promethazine HCl 25 MG/ML VIAL IM PRN (14:04)
[2019-08-04] MEDS ORDERED: Promethazine HCl 25 MG/ML VIAL SLOW IVP PRN (14:04)
[2019-08-04] MEDS ORDERED: Ondansetron HCl/PF 4 MG/2 ML Vial IVP PRN (14:04)
[2019-08-04] MEDS ORDERED: GoLYTELY 4,000 ml Bottle PO SCH (14:54)
[2019-08-04] MEDS ORDERED: Ondansetron PF 4 MG/2 ML Vial IVP PRN (15:25)
--- NOTE | 2019-08-04 16:03 | OP ---
DATE OF PROCEDURE: 08/03/2019 PREPROCEDURE DIAGNOSES: 1. History of black stools, weakness, and anemia. 2. Hemoglobin dropped from 14 in March 2019 to 9 in July of 2019. 3. Recent episode of possible red blood emesis yesterday in the office. 4. Chronic Xarelto use, off for about 48 hours now. 5. Status post transfusion 1 unit of blood for hemoglobin of 7.6, stable with no active bleeding now. 6. Chronic use of omeprazole for reflux. POSTPROCEDURE DIAGNOSES: 1. Normal esophagus. 2. Normal stomach except for a couple of red spots and gastric folds proximally. With full stomach distention, there were no varices. There were no evidence of Gabriella-Carter tear. There was no evidence of Dieulafoy's like lesions. 3. Gastric lumen with no fresh or old blood. 4. Duodenum normal to the third portion with clear yellow bile. RECOMMENDATIONS: 1. Colonoscopy tomorrow. 2. Consider the possibility he had a nose bleed. ANESTHESIA: TIVA. DESCRIPTION OF PROCEDURE: After the patient was informed of the risks, benefits, and possible complications of endoscopy including perforation, reaction to medication, and aspiration, informed consent was obtained. The patient was brought to endoscopy suite, where he was sedated in gradual fashion. Once he was comfortable, a bite block was placed inside the orifice. The endoscope was advanced into the esophagus, stomach, and second and third portions of the duodenum and slowly removed. There was good visualization of the mucosa. The esophagus was normal with no evidence of varices, Gabriella-Carter tears, or esophagitis. There was no significant hiatal hernia. The stomach was entered and found to be normal with yellow gastric content, clear with no food. The stomach was fully distended, there were a few red spots in the stomach, but no overt visible vessels, signs of Gabriella-Carter tear, signs of gastric varices, or signs of Dieulafoy's like lesions. Antrum and the stomach were normal. The incisura was investigated closely in forward and retroflexed views. The pyloric channel was normal. The duodenal bulb was normal. The duodenum was normal at the third portion with yellow bile. The stomach was then brought back in the duodenum and this was all re-evaluated, again it was normal. The scope was removed. The patient tolerated the procedure well. There were no complications. Job ID: [id number]
--- NOTE | 2019-08-04 20:40 | PDOC.HOSPP ---
- Subjective Encounter Date: 08/04/19 Subjective: Doing well. Had some nausea post-endoscopy. Otherwise, feels ok. - Objective Vital Signs & Weight: Vital Signs (12 hours) Temp Pulse Resp BP BP BP Pulse Ox 08/04/19 19:58 147/78 H 08/04/19 19:53 97.7 F 99 20 147/78 H 96 08/04/19 14:35 98.5 F 83 18 153/84 H 99 08/04/19 11:40 98.4 F 89 18 128/79 95 Weight Weight 204 lb 12.951 oz I&O: 08/03/19 08/04/19 08/05/19 06:59 06:59 06:59 Intake Total 2115 Output Total 300 Balance 1815 Result Diagrams: 08/04/19 02:53 08/04/19 02:53 Additional Labs: Accuchecks 08/04/19 08/04/19 08/04/19 16:04 11:47 05:10 POC Glucose 121 H 118 H 108 Hospitalist ROS - Medication Medications: Active Medications Generic Name Dose Route Start Last Admin Trade Name Freq PRN Reason Stop Dose Admin Atorvastatin Calcium 20 mg 08/04/19 09:00 08/04/19 11:00 Lipitor PO Not Given DAILY TAMMIE Carvedilol 6.25 mg 08/04/19 09:00 08/04/19 19:58 Coreg PO 6.25 mg BID TAMMIE Administration Dorzolamide/Timolol 1 drop 08/04/19 09:00 08/04/19 19:58 Cosopt 2-0.5% Ophth Soln EA EYE Not Given BID TAMMIE Sodium Chloride 1,000 mls @ 75 mls/hr 08/03/19 16:45 08/04/19 05:52 Normal Saline 0.9% IV Not Given .[id number] TAMMIE Latanoprost 1 drop 08/04/19 21:00 08/04/19 19:59 Xalatan 0.005% Ophth Soln EA EYE Not Given HS TAMMIE Ondansetron HCl 4 mg 08/04/19 15:25 08/04/19 15:57 Zofran IVP 4 mg Q6H PRN Administration Nausea/Vomiting Sodium Chloride 10 ml 08/04/19 09:00 08/04/19 19:59 Flush - Normal Saline IVF Not Given Q12HR TAMMIE - Exam General Appearance: NAD, awake alert Heart: RRR, no murmur, no gallops, no rubs, normal peripheral pulses Respiratory: CTAB, no wheezes, no rales, no ronchi, normal chest expansion, no tachypnea, normal percussion Gastrointestinal: soft, non-tender, non-distended, normal bowel sounds, no palpable masses, no hepatomegaly, no splenomegaly, no bruit Extremities: no cyanosis, no clubbing, no edema Musculoskeletal: normal tone Psychiatric: normal affect, normal behavior, A&O x 3 Hosp A/P (1) GIB (gastrointestinal bleeding) Code(s): K92.2 - GASTROINTESTINAL HEMORRHAGE, UNSPECIFIED Status: Acute (2) History of atrial fibrillation Code(s): Z86.79 - PERSONAL HISTORY OF OTHER DISEASES OF THE CIRCULATORY SYSTEM Status: Acute (3) CAD (coronary artery disease) Code(s): I25.10 - ATHSCL HEART DISEASE OF [place] CORONARY ARTERY W/O ANG PCTRS Status: Chronic Qualifiers: Coronary Disease-Associated Artery/Lesion type: [place] artery [place] vs. transplanted heart: [place] heart Associated angina: without angina Qualified Code(s): I25.10 - Atherosclerotic heart disease of [place] coronary artery without angina pectoris (4) Diabetes mellitus type 2 in obese Code(s): E11.9 - TYPE 2 DIABETES MELLITUS WITHOUT COMPLICATIONS; E66.9 - OBESITY , UNSPECIFIED Status: Chronic (5) Hypertension Code(s): I10 - ESSENTIAL (PRIMARY) HYPERTENSION Status: Chronic Qualifiers: Hypertension type: essential hypertension Qualified Code(s): I10 - Essential (primary) hypertension (6) PVD (peripheral vascular disease) Code(s): I73.9 - PERIPHERAL VASCULAR DISEASE, UNSPECIFIED Status: Chronic - Plan UGIB: Negative EGD today. Bowel prep for colonoscopy tomorrow. PCP indicated he had negative guaiac. Anemia: Suspect acute blood loss anemia. Continue GI work up. DM: Holding po meds since he is NPO. Blood sugars are good. Hx of afib: Holding the anticoagulation due to bleed. HTN: BP ok. Holding most meds due to the anemia and possible bleed.
[2019-08-04] MEDS ORDERED: Latanoprost 0.005% Ophth Soln 2.5 ml Bottle EA EYE SCH (21:00)
[2019-08-05 05:21] LABS: Hemoglobin 8.6 g/dL (14.0-18.0)
[2019-08-05] MEDS: Carvedilol 6.25 MG TAB PO SCH (05:36)
[2019-08-05] MEDS: Sodium Chloride 0.9% 1,000 ML IV SCH (05:37)
[2019-08-05] MEDS ORDERED: Pantoprazole 40 MG VIAL IVP SCH (09:00)
[2019-08-05] MEDS ORDERED: Promethazine HCl 25 MG/ML VIAL IM PRN (09:21)
[2019-08-05] MEDS ORDERED: Ondansetron HCl/PF 4 MG/2 ML Vial IVP PRN (09:21)
[2019-08-05] MEDS ORDERED: Promethazine HCl 25 MG/ML VIAL SLOW IVP PRN (09:21)
--- NOTE | 2019-08-05 09:42 | OP ---
DATE OF PROCEDURE: 08/05/2019 PLUMBER'S HELPER SURGEON: None. PROCEDURE PERFORMED: Colonoscopy, diagnostic. INDICATIONS: 1. Melena. 2. Acute blood loss anemia. 3. Upper endoscopy performed yesterday was negative. MEDICATIONS: See Anesthesia record. FINDINGS: After discussion of the risks, benefits, and alternatives of the procedure, informed consent was obtained and witnessed. Pre-endoscopic cardiopulmonary examination was satisfactory. Time-out was performed before sedation was achieved. Sedation was achieved with Anesthesia assistance in the endoscopy unit. Digital rectal exam was performed, which was unremarkable. A Pentax adult colonoscope was inserted into the anus and passed forward to the cecum in the usual fashion. The cecal base was identified by the appendiceal orifice as well as the ileocecal valve. The terminal ileum was intubated and the ileal mucosa appeared normal. The colonoscope was slowly withdrawn in a gradual and circumferential manner with careful examination of the entire colonic mucosa. The quality of the prep was good. There was no evidence of any old blood or active bleeding throughout the entirety of the colon. There are a few small scattered diverticula throughout the colon. The colonic mucosa appears otherwise normal throughout. There was no evidence of any bleeding lesion. No polyps were visualized. Retroflexion in the rectum was unremarkable. The colonoscope was completely withdrawn and the patient allowed to recover. The patient tolerated the procedure well. There were no immediate postprocedure complications. IMPRESSION: 1. A few scattered diverticula throughout the colon. 2. Otherwise normal colonoscopy to the terminal ileum. 3. No old blood or active bleeding. RECOMMENDATIONS: 1. Advance diet. 2. I agree with Dr. Freitas' impression that the patient's recent bleeding episode may have represented epistaxis. Consider ENT evaluation, particularly if overt bleeding were to recur. 3. Please call back anytime with questions or concerns. Job ID: [id number]
[2019-08-05] MEDS ORDERED: PROPOFOL 200 MG/20 ML VIAL ONE (09:47)
[2019-08-05] MEDS ORDERED: Lidocaine 1% PF 5 ML VIAL ONE (09:47)
[2019-08-05] MEDS: Atorvastatin Calcium 20 MG TAB PO SCH (10:01)
[2019-08-05] MEDS: DorzolamidE/Timolol 2%/0.5% Ophth Soln 10 ml Bottle EA EYE SCH (10:02)
[2019-08-05 15:20] VITALS: BP 159/89; TEMP 97.9
--- NOTE | 2019-08-05 16:39 | DIS ---
DATE OF ADMISSION: 08/03/2019 DATE OF DISCHARGE: 08/05/2019 DISCHARGE DIAGNOSES: 1. GI bleed. 2. Acute blood loss anemia. 3. History of atrial fibrillation. 4. Coronary artery disease. 5. Diabetes mellitus. 6. Hypertension. 7. Peripheral vascular disease. HISTORY OF PRESENT ILLNESS: This patient is a 64-year-old male, who presented initially to his primary care provider who is Dr. Esther Gordillo. He was reporting some black stools. He had a negative Hemoccult, but due to high suspicion, was referred to the negative checker. While awaiting his appointment there in the waiting room, the patient had some hematemesis and was subsequently brought to the emergency department for further evaluation. There, the patient's initial hemoglobin was 8.1. His vital signs were otherwise largely unremarkable as was his exam. HOSPITAL COURSE: The patient was admitted with GI bleed. He was on anticoagulation for atrial fibrillation and this was subsequently held. Serial hemoglobins revealed a drop down to 7.6 and the patient required 1 unit of blood transfusion. He then underwent an EGD, which showed a normal esophagus. There were a couple of red spots of the gastric folds. No varices. No evidence of tears. No evidence of Dieulafoy lesions. No evidence of blood and a normal duodenum to the third portion. Subsequently, the patient had a bowel prep and underwent a colonoscopy on the day of discharge that revealed only a few scattered diverticula throughout the colon, otherwise normal. No old blood. No evidence of active bleeding. With that, the patient actually felt well postprocedure. The GI physicians recommended consideration of an ENT evaluation for possible posterior chamber type epistaxis, although the patient was unaware of having had any of that recently. He was then seen by Dr. Bruce who recommended we discontinue his oral anticoagulants and keep him on aspirin 81 mg per day for his history of atrial fibrillation in light of his GI bleeding. PHYSICAL EXAMINATION: VITAL SIGNS: On the day of discharge, temperature was 97.9, pulse 94, respirations 20, O2 saturation was 95% on room air, BP was 152/85. GENERAL: He was awake and alert, pleasant and cooperative. HEART: Regular rate and rhythm without murmurs, gallops, or rubs. LUNGS: Clear to auscultation bilaterally with good chest wall expansion and air exchange. ABDOMEN: Soft, nontender, and nondistended. Positive bowel sounds. No masses. No organomegaly. EXTREMITIES: No edema. DISPOSITION: The patient is discharged to home. DIET: He is to be on a heart healthy diet. ACTIVITY: As tolerated. DISCHARGE MEDICATIONS: 1. He will be on aspirin 81 mg p.o. daily. 2. He is to continue with glimepiride 4 mg daily. 3. Metformin 1000 mg b.i.d. 4. Atorvastatin 20 mg daily. 5. Aspirin 81 mg daily. 6. Omeprazole 20 mg daily. 7. Lisinopril 20 mg b.i.d. 8. Forxiga 10 mg at bedtime. 9. Carvedilol 6.25 mg b.i.d. 10. Latanoprost one drop each eye at bedtime. 11. Cosopt 1 drop each eye daily. 12. Benadryl 50 mg at bedtime. 13. Jardiance 25 mg daily. 14. He will discontinue the Eliquis. FOLLOWUP: He will follow up with Dr. Esther Gordillo in 7 days. He should follow up with Dr. Trae Milton and Dr. Espinoza Bruce. He can return to the hospital at anytime should he have the need to do so. TIME SPENT: Total time in discharge activities was 34 minutes. Job ID: [id number]
--- NOTE | 2019-08-05 19:03 | CON ---
DATE OF CONSULTATION: 08/05/2019 REASON FOR CONSULTATION: Hematemesis in the setting of anticoagulation for atrial fibrillation. PRIMARY AIR GUN OPERATOR: Espinoza Bruce MD HISTORY OF PRESENT ILLNESS: Mr. Deutsch is a very pleasant 64-year-old gentleman, who comes to the hospital for hematemesis. He is chronically on Xarelto for atrial fibrillation. He had bypass surgery and actually had a left atrial appendage ligation during his bypass. However, a transesophageal echo performed later showed there was still flow in and out of the left atrial appendage, so he was restarted on Xarelto. He comes in for this, and his hemoglobin was reduced. He underwent endoscopies, which are mostly negative. Cardiology is being consulted as to how to address his need for anticoagulation for stroke prophylaxis. PAST MEDICAL HISTORY: 1. He has a history of paroxysmal atrial fibrillation. 2. Ischemic cardiomyopathy with an EF about 45% to 50%. 3. Status post CABG. 4. Type 2 diabetes. 5. Hyperlipidemia. SURGICAL HISTORY: 1. CABG in 2017. 2. Peripheral vascular disease, status post stents in legs in the past. 3. Eye surgery. 4. Left atrial appendage ligation, however, not fully ligated after KAVITA was done to confirm. OUTPATIENT MEDICATIONS: 1. Xarelto 20 mg a day. 2. Lisinopril 20 mg b.i.d. 3. Metformin. 4. Aspirin 81. 5. Atorvastatin 20 mg a day. 6. Cilostazol 100 mg b.i.d. 7. Omeprazole 20 mg a day. 8. Glimepiride 4 mg a day. 9. Latanoprost. 10. Farxiga 10 mg a day. 11. Lasix 20 mg p.r.n. 12. Carvedilol 6.25 b.i.d. 13. Timolol. ALLERGIES: NO KNOWN DRUG ALLERGIES. SOCIAL HISTORY: Former smoker, quit in 2018. No alcohol or drugs. FAMILY HISTORY: Coronary artery disease in mother. REVIEW OF SYSTEMS: A 12-point review of systems was done and was all negative unless stated in the history of present illness. PHYSICAL EXAMINATION: VITAL SIGNS: Temperature 98.0, pulse 94, respiratory rate 20, saturating 98% on room air, and blood pressure 152/85. GENERAL: Awake, alert, and oriented x3. In no distress. HEENT: Normocephalic and atraumatic. NECK: Supple. LUNGS: Clear. CARDIOVASCULAR: S1 and S2. No S3 or S4. No murmurs. ABDOMEN: Soft. Positive bowel sounds. EXTREMITIES: No edema. SKIN: Warm and dry. LABORATORY DATA: Laboratory work was reviewed. White count of 7, hemoglobin as low as 7.6 up to 8.6, and platelet count of 168. Metabolic profile was unremarkable. GFR of 83. EKG was reviewed. ASSESSMENT: 1. Upper gastrointestinal bleed, suspect, although negative endoscopy would suggest maybe something up in the upper airway. 2. Acute blood loss anemia. 3. Paroxysmal atrial fibrillation. 4. Status post left atrial appendage ligation. However, there is still flow in and out of the appendage on transesophageal echo. PLAN: 1. Currently, there is no obvious source of bleeding, but there was a drop in his hemoglobin. Would stay away from [facility] at this time. May be discharged home on aspirin alone. Plan is to see ENT as there may be something in his upper airway or nose area that bled and made him throw up blood. 2. Discharge home at any time from the cardiac perspective. 3. We will follow up in the office in 4 weeks. Job ID: [id number]
--- NOTE | 2019-08-06 11:08 | EKG ---
Test Reason : EMERGENCY EXAM Blood Pressure : / mmHG Vent. Rate : 090 BPM Atrial Rate : 234 BPM P-R Int : 000 ms QRS Dur : 078 ms QT Int : 350 ms P-R-T Axes : 000 078 211 degrees QTc Int : 428 ms Normal sinus rhythm Abnormal ECG Confirmed by SHERRIE LERMA MD ([id number]), desk editor RONALD GUDINO ([id number]) on 08/06/2019 11:08:04 AM Referred By: Confirmed By:SHERRIE LERMA MD
--- NOTE | 2019-08-10 10:09 | PQF ---
SHASHI SWAIN DAVID R MD [id number] CLINICAL DOCUMENTATION CLARIFICATION FORM: POST DISCHARGE Addendum to original discharge summary date: ____ Late entry note date: __ DATE: 08/10/2019 ATTN: MARY ELLEN CAMEJO MD Please exercise your independent, professional judgment in responding to the clarification form. Clinical indicators are provided on the bottom of this form for your review Please check appropriate box(s): kindly clarify GI bleeding etiology [x ] GI bleeding due to anticoagulant [ ] GI bleeding due to diverticulum [ ] Other diagnosis [ ] Unable to determine For continuity of documentation, please document condition throughout progress notes and discharge summary. Thank You. CLINICAL INDICATORS - SIGNS / SYMPTOMS / LABS The patient admitted with GI bleed. He was on anticoagulation for atrial fibrillation and this was subsequently held. Serial hemoglobins revealed a drop down to 7.6 and the patient required 1 unit of blood transfusion-Documented in Discharge summary on 08/04 by Mary Ellen Camejo MD He then underwent an EGD , which showed a normal esophagus . There were a couple of red spots of the gastric folds. No varices. No evidence of tears . No evidence of Dieulafoy lesions. no evidence of blood and a normal duodenum to the third portion-Documented in Discharge summary on 08/04 by Mary Ellen Camejo MD Underwent a colonoscopy on the day of discharge that reveal only a few scattered diverticula throughout the colon-Documented in Discharge summary on by Mary Ellen Camejo MD RISK FACTORS He was on anticoagulation for atrial fibrillation-Documented in Discharge summary on 08/04 by Mary Ellen Camejo MD Underwent a colonoscopy on the day of discharge that reveald only a few scattered diverticula throughout the colon-Documented in Discharge summary on by Mary Ellen Camejo MD TREATMENTS: He was the seen by Dr Colat who recommended we discontinue his oral anticoagulants and keep him on aspirin 81 mg per day -Documented in Discharge summary on 08/04 by Mary Ellen Camejo MD EGD on 08/02 by Shashi Freitas MD Colonoscopy on 08/04 by Mary Ellen Milton MD Protonix 40 mg -Documented in medication snapshot [employer] Winform Viewer (This form is maintained as a part of the permanent medical record) 2014 [employer] All Rights Reserved [email or web address]
== END 2019-08-05 14:45 | disposition home or self-care (01) | DRG 813 ==
LOC: ERS 14:24 → T4-A 17:53
PROVIDERS: ADMIT Internal Medicine; ATTEND Internal Medicine
PROC: 0DJ08ZZ Inspection of Upper Intestinal Tract, Via Natural or Artificial Opening Endoscopic (ICD-10-PCS; principal; 2019-08-03)
PROC: 30233N1 Transfusion of Nonautologous Red Blood Cells into Peripheral Vein, Percutaneous Approach (ICD-10-PCS; 2019-08-03)
PROC: 0DJD8ZZ Inspection of Lower Intestinal Tract, Via Natural or Artificial Opening Endoscopic (ICD-10-PCS; 2019-08-05)
DX: D68.318 Other hemorrhagic disorder due to intrinsic circulating anticoagulants, antibodies, or inhibitors (principal); K92.1 Melena; D62 Acute posthemorrhagic anemia; I50.32 Chronic diastolic (congestive) heart failure; K92.0 Hematemesis; I25.10 Atherosclerotic heart disease of native coronary artery without angina pectoris; E11.51 Type 2 diabetes mellitus with diabetic peripheral angiopathy without gangrene; E78.5 Hyperlipidemia, unspecified; I11.0 Hypertensive heart disease with heart failure; Z87.891 Personal history of nicotine dependence; E11.39 Type 2 diabetes mellitus with other diabetic ophthalmic complication; G47.30 Sleep apnea, unspecified; K21.9 Gastro-esophageal reflux disease without esophagitis; I48.0 Paroxysmal atrial fibrillation; Z79.01 Long term (current) use of anticoagulants; Z95.1 Presence of aortocoronary bypass graft; I25.5 Ischemic cardiomyopathy; F10.20 Alcohol dependence, uncomplicated
CPT/HCPCS: 36415; 36416; 36430; 80048; 80053; 85014; 85018; 85025; 85610; 85730; 86850; 86870; 86900; 86901; 86922; 93005; 96365; 96366; 96376; C9113; J2001; J2405; J2704; J3010; J3490; P9016

== ENCOUNTER 2022-12-28 17:05 | Emergency (ER) | payer MEDICARE ==
[2022-12-28] MEDS ORDERED: dilTIAZem 25 MG/5 ML VIAL ONE (17:29)
[2022-12-28 17:46] LABS: #Eosinphils 0.1 thou/uL (0.0-0.7); #Monocytes 0.8 thou/uL (0.11-0.59); #Neutrophils 4.8 thou/uL (1.40-6.50); %Basophils 0.4 % (0.0-1.0); %Eosinophils 1.3 % (0.0-10.0); %Lymphocytes 23.9 % (21.0-51.0); %Monocytes 10.7 % (0.0-10.0); %Neutrophils 63.6 % (42.0-75.0); Hematocrit 43.3 % (42.0-52.0); Hemoglobin 14.5 g/dL (14.0-18.0); Mean Corpuscular HGB CONC 33.5 g/dL (32.0-36.0); Mean Corpuscular Hemoglobin 30.9 pg (27.0-31.0); Mean Corpuscular Volume 92.3 fl (78.0-98.0); Platelet Count 158 10x3/uL (130-400); Red Blood Cell (RBC) Count 4.69 mill/uL (4.70-6.10); White Blood Cell (WBC) Count 7.5 10x3/uL (4.8-10.8)
[2022-12-28 18:01] LABS: ALT (SGPT) 17 U/L (8-55); AST (SGOT) 15 U/L (5-34); Albumin 3.9 g/dL (3.4-4.8); Alkaline Phosphatase 78 U/L (40-110); Anion Gap 11 mmol/L (10-20); BUN (Urea Nitrogen) 19 mg/dL (8.4-25.7); Bilirubin, Total 0.9 mg/dL (0.2-1.2); Calc. Creatinine Clearance 0 mL/min (70-130); Carbon Dioxide 26 mmol/L (23-31); Chloride 104 mmol/L (98-107); Estimated GFR 77; Globulin 3.3 g/dL (2.4-3.5); Glucose 156 mg/dL (80-115); Potassium 4.1 mmol/L (3.5-5.1); Protein, Total 7.2 g/dL (5.8-8.1); Sodium 137 mmol/L (136-145)
== END 2022-12-28 18:55 | disposition home or self-care (01) ==
LOC: ERS 17:05
DX: I48.20 Chronic atrial fibrillation, unspecified (principal); E11.65 Type 2 diabetes mellitus with hyperglycemia; R00.0 Tachycardia, unspecified; E78.5 Hyperlipidemia, unspecified; Z79.82 Long term (current) use of aspirin; Z79.84 Long term (current) use of oral hypoglycemic drugs; Z79.01 Long term (current) use of anticoagulants; R81 Glycosuria
CPT/HCPCS: 36415; 80053; 82010; 84484; 85025; 87086; 93005; 96361; 96374

== ENCOUNTER 2023-01-02 13:53 | Inpatient (IN) | payer MEDICARE ==
[2023-01-02 17:46] VITALS: BMI 35.4
[2023-01-02] MEDS ORDERED: diphenhydrAMINE 25 MG CAP PO PRN (17:49)
[2023-01-02] MEDS ORDERED: Acetaminophen 325 MG TAB PO PRN (17:52)
[2023-01-02] MEDS ORDERED: Senokot S 8.6-50 MG TAB PO PRN (17:52)
[2023-01-02] MEDS ORDERED: Calcium Carbonate 500 MG ChewTAB PO PRN (17:52)
[2023-01-02] MEDS ORDERED: Ondansetron ODT 4 MG TAB PO PRN (17:52)
[2023-01-02] MEDS ORDERED: dilTIAZem 125 MG in Sodium Chloride 0.9% 100 ML IVPB SCH (18:00)
[2023-01-02] MEDS ORDERED: Dextrose 50% Abboject 50 ML SYRINGE SLOW IVP PRN (18:30)
[2023-01-02] MEDS ORDERED: Glucagon 1 MG/ML KIT IM PRN (18:30)
[2023-01-02] MEDS ORDERED: HumaLOG 300 UNITS/3 ML VIAL SC PRN (18:30)
[2023-01-02] MEDS ORDERED: Dextrose 5% in Water 1,000 ML IV PRN (18:30)
[2023-01-02 18:46] LABS: #Eosinphils 0.1 thou/uL (0.0-0.7); #Monocytes 0.8 thou/uL (0.11-0.59); #Neutrophils 6.8 thou/uL (1.40-6.50); %Basophils 0.2 % (0.0-1.0); %Eosinophils 1.5 % (0.0-10.0); %Lymphocytes 16.3 % (21.0-51.0); %Monocytes 8.2 % (0.0-10.0); %Neutrophils 73.5 % (42.0-75.0); Hematocrit 44.5 % (42.0-52.0); Hemoglobin 14.5 g/dL (14.0-18.0); Mean Corpuscular HGB CONC 32.6 g/dL (32.0-36.0); Mean Corpuscular Hemoglobin 30.7 pg (27.0-31.0); Mean Corpuscular Volume 94.3 fl (78.0-98.0); Mean Platelet Volume 10.8 fL (7.4-10.4); Platelet Count 172 10x3/uL (130-400); RBC Distribution Width 12.9 % (11.5-14.5); Red Blood Cell (RBC) Count 4.72 mill/uL (4.70-6.10); White Blood Cell (WBC) Count 9.2 10x3/uL (4.8-10.8)
[2023-01-02] MEDS ORDERED: Electrolyte Replacement Protocol 1 EACH FS PRN (19:04)
[2023-01-02 19:05] LABS: Anion Gap 14 mmol/L (10-20); BUN (Urea Nitrogen) 15 mg/dL (8.4-25.7); Calc. Creatinine Clearance 109 mL/min (70-130); Calcium 9.4 mg/dL (7.8-10.44); Carbon Dioxide 26 mmol/L (23-31); Chloride 103 mmol/L (98-107); Estimated GFR 83; Glucose 86 mg/dL (80-115); Magnesium 1.4 mg/dL (1.6-2.6); Potassium 4.3 mmol/L (3.5-5.1); Sodium 139 mmol/L (136-145)
[2023-01-02 19:10] LABS: Troponin I 0.015 ng/mL (< 0.028)
[2023-01-02] MEDS: Fish Oil 1,000 MG CAP PO SCH (20:08)
[2023-01-02] MEDS: Carvedilol 6.25 MG TAB PO SCH (20:09)
[2023-01-02] MEDS ORDERED: Lisinopril 20 MG TAB PO SCH (21:00)
[2023-01-02] MEDS: DorzolamidE/Timolol 2%/0.5% Ophth Soln 10 ml Bottle EA EYE SCH (22:21)
[2023-01-02] MEDS ORDERED: Magnesium Sulfate In Water 4 GM in Premix Bag 1 BAG IVPB SCH (23:00)
[2023-01-03 04:04] LABS: #Eosinphils 0.1 thou/uL (0.0-0.7); #Monocytes 0.7 thou/uL (0.11-0.59); #Neutrophils 5.2 thou/uL (1.40-6.50); %Basophils 0.3 % (0.0-1.0); %Eosinophils 1.9 % (0.0-10.0); %Lymphocytes 18.4 % (21.0-51.0); %Monocytes 9.9 % (0.0-10.0); %Neutrophils 69.2 % (42.0-75.0); Hematocrit 40.5 % (42.0-52.0); Hemoglobin 13.3 g/dL (14.0-18.0); Mean Corpuscular HGB CONC 32.8 g/dL (32.0-36.0); Mean Corpuscular Hemoglobin 30.5 pg (27.0-31.0); Mean Corpuscular Volume 92.9 fl (78.0-98.0); Mean Platelet Volume 11.4 fL (7.4-10.4); Platelet Count 147 10x3/uL (130-400); RBC Distribution Width 12.9 % (11.5-14.5); Red Blood Cell (RBC) Count 4.36 mill/uL (4.70-6.10); White Blood Cell (WBC) Count 7.5 10x3/uL (4.8-10.8)
[2023-01-03 04:36] LABS: ALT (SGPT) 12 U/L (8-55); AST (SGOT) 13 U/L (5-34); Albumin 3.5 g/dL (3.4-4.8); Alkaline Phosphatase 69 U/L (40-110); Anion Gap 12 mmol/L (10-20); BUN (Urea Nitrogen) 18 mg/dL (8.4-25.7); Bilirubin, Total 0.7 mg/dL (0.2-1.2); Calc. Creatinine Clearance 89 mL/min (70-130); Calcium 8.7 mg/dL (7.8-10.44); Carbon Dioxide 26 mmol/L (23-31); Chloride 102 mmol/L (98-107); Estimated GFR 65; Glucose 191 mg/dL (80-115); Magnesium 2.6 mg/dL (1.6-2.6); Potassium 4.4 mmol/L (3.5-5.1); Protein, Total 6.5 g/dL (5.8-8.1); Sodium 136 mmol/L (136-145)
[2023-01-03] MEDS: Aspirin 81 mg Enteric Coated Tablet PO SCH (08:10)
[2023-01-03] MEDS: Carvedilol 6.25 MG TAB PO SCH ×2 (08:10→20:31)
[2023-01-03] MEDS: Lisinopril 10 MG TAB PO SCH (08:10)
[2023-01-03] MEDS: Atorvastatin Calcium 20 MG TAB PO SCH (08:10)
[2023-01-03] MEDS: DorzolamidE/Timolol 2%/0.5% Ophth Soln 10 ml Bottle EA EYE SCH ×2 (08:50→20:28)
[2023-01-03] MEDS ORDERED: Empagliflozin 25 MG TAB PO SCH (09:00)
[2023-01-03] MEDS ORDERED: Glimepiride 4 MG TAB PO SCH (09:00)
[2023-01-03] MEDS: HumuLIN 70/30 100 Unit/ ml 10 ml Vial SC SCH ×2 (10:02→17:12)
[2023-01-03] MEDS: Rivaroxaban 10 MG TAB PO SCH (17:12)
[2023-01-03] MEDS: Fish Oil 1,000 MG CAP PO SCH (20:28)
[2023-01-03] MEDS: HumaLOG 300 UNITS/3 ML VIAL SC PRN (20:29)
[2023-01-04] MEDS: Atorvastatin Calcium 20 MG TAB PO SCH (08:51)
[2023-01-04] MEDS: Carvedilol 6.25 MG TAB PO SCH ×2 (08:51→20:16)
[2023-01-04] MEDS: DorzolamidE/Timolol 2%/0.5% Ophth Soln 10 ml Bottle EA EYE SCH ×2 (08:51→20:17)
[2023-01-04] MEDS: HumuLIN 70/30 100 Unit/ ml 10 ml Vial SC SCH ×2 (08:51→17:32)
[2023-01-04] MEDS: Aspirin 81 mg Enteric Coated Tablet PO SCH (08:51)
[2023-01-04] MEDS: Lisinopril 10 MG TAB PO SCH (08:52)
[2023-01-04] MEDS ORDERED: Dronedarone HCl 400 MG TAB PO SCH (11:50)
[2023-01-04] MEDS: Rivaroxaban 10 MG TAB PO SCH (17:32)
[2023-01-04] MEDS: Dronedarone HCl 400 MG TAB PO SCH (17:32)
[2023-01-04] MEDS: HumaLOG 300 UNITS/3 ML VIAL SC PRN (20:16)
[2023-01-04] MEDS: Fish Oil 1,000 MG CAP PO SCH (20:16)
[2023-01-05] MEDS: Dronedarone HCl 400 MG TAB PO SCH (09:06)
[2023-01-05] MEDS: Lisinopril 10 MG TAB PO SCH (09:06)
[2023-01-05] MEDS: DorzolamidE/Timolol 2%/0.5% Ophth Soln 10 ml Bottle EA EYE SCH (09:07)
[2023-01-05] MEDS: Atorvastatin Calcium 20 MG TAB PO SCH (09:07)
[2023-01-05] MEDS: Carvedilol 6.25 MG TAB PO SCH (09:07)
[2023-01-05] MEDS: Aspirin 81 mg Enteric Coated Tablet PO SCH (09:07)
[2023-01-05] MEDS: HumuLIN 70/30 100 Unit/ ml 10 ml Vial SC SCH (09:08)
[2023-01-05 12:07] VITALS: BP 131/71; TEMP 97.7
== END 2023-01-05 13:15 | disposition home or self-care (01) | DRG 309 ==
LOC: 2NO 17:10
PROVIDERS: ADMIT Internal Medicine; ATTEND Hospitalist
DX: I48.0 Paroxysmal atrial fibrillation (principal); I25.810 Atherosclerosis of coronary artery bypass graft(s) without angina pectoris; E78.5 Hyperlipidemia, unspecified; E11.9 Type 2 diabetes mellitus without complications; E66.9 Obesity, unspecified; Z79.82 Long term (current) use of aspirin; Z79.4 Long term (current) use of insulin; Z95.1 Presence of aortocoronary bypass graft; Z79.01 Long term (current) use of anticoagulants; Z68.35 Body mass index [BMI] 35.0-35.9, adult; Z79.84 Long term (current) use of oral hypoglycemic drugs; I25.5 Ischemic cardiomyopathy; I08.1 Rheumatic disorders of both mitral and tricuspid valves; I10 Essential (primary) hypertension
CPT/HCPCS: 36415; 36416; 80048; 80053; 83735; 83880; 84484; 85025; 93005; 93010; 93306; J1815; J3475; J3490

== ENCOUNTER 2023-01-21 08:57 | Day surgery (SDC) | payer MEDICARE ==
[2023-01-18 11:27] VITALS: BMI 34.3
[2023-01-21] MEDS ORDERED: Heparin 25,000 units/D5W 500 ML ONE (09:35)
[2023-01-21] MEDS ORDERED: Heparin 10,000 UNITS/ 10 ML VIAL ONE (09:35)
[2023-01-21] MEDS ORDERED: Protamine Sulfate 50 MG/5 ML VIAL ONE (09:35)
[2023-01-21 10:07] LABS: #Eosinphils 0.2 thou/uL (0.0-0.7); #Monocytes 0.7 thou/uL (0.11-0.59); #Neutrophils 5.3 thou/uL (1.40-6.50); %Basophils 0.3 % (0.0-1.0); %Lymphocytes 17.7 % (21.0-51.0); %Monocytes 8.8 % (0.0-10.0); %Neutrophils 70.9 % (42.0-75.0); Hematocrit 39.3 % (42.0-52.0); Hemoglobin 12.9 g/dL (14.0-18.0); Mean Corpuscular HGB CONC 32.8 g/dL (32.0-36.0); Mean Corpuscular Hemoglobin 30.6 pg (27.0-31.0); Mean Corpuscular Volume 93.1 fl (78.0-98.0); Mean Platelet Volume 10.4 fL (7.4-10.4); Platelet Count 153 10x3/uL (130-400); Red Blood Cell (RBC) Count 4.22 mill/uL (4.70-6.10); White Blood Cell (WBC) Count 7.4 10x3/uL (4.8-10.8)
[2023-01-21 10:33] LABS: Anion Gap 10 mmol/L (10-20); BUN (Urea Nitrogen) 16 mg/dL (8.4-25.7); Calc. Creatinine Clearance 123 mL/min (70-130); Carbon Dioxide 27 mmol/L (23-31); Chloride 106 mmol/L (98-107); Estimated GFR 96; Glucose 151 mg/dL (80-115); Potassium 5.1 mmol/L (3.5-5.1); Sodium 138 mmol/L (136-145)
[2023-01-21] MEDS ORDERED: fentaNYL PF 100 MCG/2 ML SYRINGE ONE (12:04)
[2023-01-21] MEDS ORDERED: Ketamine 50 MG/ML (10ML VIAL) ONE (12:21)
[2023-01-21] MEDS ORDERED: Lidocaine 1% PF 5 ML VIAL ONE (12:30)
[2023-01-21] MEDS ORDERED: NEOSTIGMINE 3 MG/3 ML SYR 3 MG/3 ML SYRINGE ONE (12:30)
[2023-01-21] MEDS ORDERED: Glycopyrrolate 0.2 MG/ML 5 ML SYRINGE ONE (12:30)
[2023-01-21] MEDS ORDERED: Rocuronium Bromide 10 MG/ML (10ML VIAL) ONE (12:30)
[2023-01-21] MEDS ORDERED: PROPOFOL 200 MG/20 ML VIAL ONE (12:30)
[2023-01-21] MEDS ORDERED: Dexamethasone 20 MG/5 ML VIAL ONE (12:30)
[2023-01-21] MEDS ORDERED: PHENYLEPHRINE-NS 100 MCG/ML 10 ML SYRINGE ONE (12:30)
[2023-01-21] MEDS ORDERED: Ondansetron PF 4 MG/2 ML Vial ONE (12:30)
[2023-01-21] MEDS ORDERED: ePHEDrine Sulfate 50 MG/10 ML VIAL ONE (12:30)
[2023-01-21] MEDS ORDERED: Isoproterenol 0.2 MG/1 ML AMP ONE (13:30)
[2023-01-21] MEDS ORDERED: Promethazine HCl 25 MG/ML VIAL IM PRN (15:25)
[2023-01-21] MEDS ORDERED: fentaNYL 50 mcg/mL 1 mL Vial ONE (15:46)
[2023-01-21] MEDS ORDERED: Ketorolac Tromethamine 30 MG/ML VIAL ONE (15:47)
[2023-01-21] MEDS ORDERED: Labetalol HCl 100 MG/20 ML VIAL ONE (18:59)
== END 2023-01-21 19:50 | disposition home or self-care (01) ==
LOC: SDC 08:57
PROVIDERS: ATTEND Internal Medicine Cardiovascular Disease
DX: I48.0 Paroxysmal atrial fibrillation (principal); I10 Essential (primary) hypertension; E78.5 Hyperlipidemia, unspecified; E11.9 Type 2 diabetes mellitus without complications; I25.10 Atherosclerotic heart disease of native coronary artery without angina pectoris; I49.9 Cardiac arrhythmia, unspecified; Z79.82 Long term (current) use of aspirin; Z79.84 Long term (current) use of oral hypoglycemic drugs; Z79.4 Long term (current) use of insulin; Z79.899 Other long term (current) drug therapy
CPT/HCPCS: 80048; 82962; 85025; 85347 ×2; 93005; 93622; 93623; 93655; 93656; 93657; C1732 ×3; C1759; C1760; C1894 ×2; J3010; 36416; 93010; J1100; J1644; J1885; J2405; J2704; J2720

== ENCOUNTER 2025-03-24 11:41 | Inpatient (IN) | payer MEDICARE ==
[2025-03-24 12:33] LABS: ALT (SGPT) 17 U/L (Less than 45); AST (SGOT) 15 U/L (11-34); Albumin 4.0 g/dL (3.1-4.5); Alkaline Phosphatase 76 U/L (40-110); Anion Gap 14 mmol/L (10-20); BUN (Urea Nitrogen) 26 mg/dL (8.4-25.7); Bilirubin, Total 0.7 mg/dL (0.3-1.2); Calc. Creatinine Clearance 0 mL/min (70-130); Calcium 9.5 mg/dL (7.8-10.44); Carbon Dioxide 26 mmol/L (23-31); Chloride 103 mmol/L (98-107); Globulin 3.5 g/dL (2.4-3.5); Glucose 104 mg/dL (80-115); Potassium 5.4 mmol/L (3.5-5.1); Sodium 138 mmol/L (136-145)
[2025-03-24 12:45] LABS: #Basophils Less than 0.03 10x3/uL (0.0-0.2); #Eosinophils 0.11 10x3/uL (0.0-0.7); #Monocytes 0.54 10x3/uL (0.11-0.59); #Neutrophils 5.86 10x3/uL (1.40-6.50); %Basophils 0.3 % (0.0-1.0); %Eosinophils 1.4 % (0.0-10.0); %Lymphocytes 17.4 % (21.0-51.0); %Monocytes 6.8 % (0.0-10.0); %Neutrophils 73.7 % (42.0-75.0); Hematocrit 39.5 % (42.0-52.0); Hemoglobin 12.9 g/dL (14.0-18.0); Mean Corpuscular Hemoglobin 29.9 pg (27.0-31.0); Mean Corpuscular Volume 91.4 fL (78.0-98.0); Platelet Count 139 10x3/uL (130-400); Red Blood Cell (RBC) Count 4.32 mill/uL (4.70-6.10); White Blood Cell (WBC) Count 7.94 10x3/uL (4.8-10.8)
[2025-03-24] MEDS ORDERED: Nitroglycerin 2% Ointment 1 INCH/1 GM Packet ONE (12:56)
[2025-03-24] MEDS ORDERED: Furosemide 40 MG (4 mL) VIAL ONE (12:56)
[2025-03-24] MEDS ORDERED: Ondansetron PF 4 MG/2 ML Vial IVP PRN (15:14)
[2025-03-24] MEDS ORDERED: Glucagon 1 MG/ML KIT IM PRN (15:14)
[2025-03-24] MEDS ORDERED: Dextrose 50% Abboject 50 ML SYRINGE SLOW IVP PRN (15:14)
[2025-03-24] MEDS: FLU (Fluad Triv) 25-26 (65UP)PF 45 MCG/0.5 ML Syringe IM ONE (18:21)
[2025-03-25] MEDS: Furosemide 40 MG (4 mL) VIAL SLOW IVP SCH (05:10)
[2025-03-25 06:08] LABS: #Basophils 0.03 10x3/uL (0.0-0.2); #Eosinophils 0.12 10x3/uL (0.0-0.7); #Monocytes 0.58 10x3/uL (0.11-0.59); #Neutrophils 5.48 10x3/uL (1.40-6.50); %Basophils 0.4 % (0.0-1.0); %Eosinophils 1.6 % (0.0-10.0); %Lymphocytes 16.2 % (21.0-51.0); %Monocytes 7.8 % (0.0-10.0); %Neutrophils 73.6 % (42.0-75.0); Hematocrit 37.7 % (42.0-52.0); Hemoglobin 12.3 g/dL (14.0-18.0); Mean Corpuscular Hemoglobin 29.6 pg (27.0-31.0); Mean Corpuscular Volume 90.6 fL (78.0-98.0); Platelet Count 146 10x3/uL (130-400); Red Blood Cell (RBC) Count 4.16 mill/uL (4.70-6.10); White Blood Cell (WBC) Count 7.45 10x3/uL (4.8-10.8)
[2025-03-25 06:29] LABS: Anion Gap 17 mmol/L (10-20); BUN (Urea Nitrogen) 31 mg/dL (8.4-25.7); Calc. Creatinine Clearance 81 mL/min (70-130); Calcium 9.4 mg/dL (7.8-10.44); Carbon Dioxide 26 mmol/L (23-31); Chloride 101 mmol/L (98-107); Glucose 132 mg/dL (80-115); Potassium 4.5 mmol/L (3.5-5.1); Sodium 139 mmol/L (136-145)
[2025-03-25] MEDS: Dapagliflozin Propanediol 10 MG TAB PO SCH (10:04)
[2025-03-25] MEDS: Sacubitril 49 MG/Valsartan 51 MG TABLET PO SCH (10:04)
[2025-03-25] MEDS: Aspirin 81 mg Enteric Coated Tablet PO SCH (10:04)
[2025-03-25] MEDS: glipiZIDE XL 10 mg ER.TAB PO SCH (10:04)
[2025-03-25] MEDS: metFORMIN 500 MG TAB PO SCH (17:49)
[2025-03-25] MEDS: HumuLIN 70/30 100 Unit/ml 10 ml Vial SC SCH (17:49)
[2025-03-25] MEDS: Carvedilol 6.25 MG TAB PO SCH (17:49)
[2025-03-25] MEDS ORDERED: Communication Order-Pharmacy FS SCH (18:00)
[2025-03-26] MEDS ORDERED: Heparin 10,000 UNITS/ 10 ML VIAL ONE (06:40)
[2025-03-26] MEDS ORDERED: Adenosine 6 mg (2 mL) VIAL ONE (06:40)
[2025-03-26] MEDS ORDERED: Lidocaine 1% (PF) 30 ML VIAL ONE (06:40)
[2025-03-26] MEDS ORDERED: PHENYLEPHRINE-NS 100 MCG/ML 10 ML SYRINGE ONE (06:41)
[2025-03-26] MEDS ORDERED: Nitroglycerin 50 MG/250 ML BOT 0 ML ONE (06:41)
[2025-03-26] MEDS ORDERED: Iopamidol 370 76% 100 ML VIAL ONE (10:59)
[2025-03-26] MEDS ORDERED: Nitroglycerin 0.4 MG TAB (25 Tab Bottle) SL PRN (12:27)
[2025-03-26] MEDS: Acetaminophen/Codeine 30-300mg Tablet PO PRN (13:39)
[2025-03-27 05:34] VITALS: BMI 33.5
[2025-03-27 06:03] LABS: Anion Gap 15 mmol/L (10-20); BUN (Urea Nitrogen) 29 mg/dL (8.4-25.7); Calc. Creatinine Clearance 91 mL/min (70-130); Calcium 8.7 mg/dL (7.8-10.44); Carbon Dioxide 27 mmol/L (23-31); Chloride 103 mmol/L (98-107); Glucose 146 mg/dL (80-115); Potassium 4.2 mmol/L (3.5-5.1); Sodium 141 mmol/L (136-145)
[2025-03-27] MEDS: Spironolactone 25 MG TAB PO SCH (09:26)
[2025-03-27] MEDS: Dapagliflozin Propanediol 10 MG TAB PO SCH (09:27)
[2025-03-28 05:13] LABS: #Basophils Less than 0.03 10x3/uL (0.0-0.2); #Eosinophils 0.15 10x3/uL (0.0-0.7); #Monocytes 0.73 10x3/uL (0.11-0.59); #Neutrophils 4.58 10x3/uL (1.40-6.50); %Basophils 0.3 % (0.0-1.0); %Eosinophils 2.1 % (0.0-10.0); %Lymphocytes 21.6 % (21.0-51.0); %Monocytes 10.4 % (0.0-10.0); %Neutrophils 65.5 % (42.0-75.0); Hematocrit 39.7 % (42.0-52.0); Hemoglobin 13.3 g/dL (14.0-18.0); Mean Corpuscular Hemoglobin 29.8 pg (27.0-31.0); Mean Corpuscular Volume 88.8 fL (78.0-98.0); Platelet Count 135 10x3/uL (130-400); Red Blood Cell (RBC) Count 4.47 mill/uL (4.70-6.10); White Blood Cell (WBC) Count 7.00 10x3/uL (4.8-10.8)
[2025-03-28 05:33] LABS: Anion Gap 16 mmol/L (10-20); BUN (Urea Nitrogen) 31 mg/dL (8.4-25.7); Calc. Creatinine Clearance 73 mL/min (70-130); Calcium 9.1 mg/dL (7.8-10.44); Carbon Dioxide 30 mmol/L (23-31); Chloride 102 mmol/L (98-107); Glucose 158 mg/dL (80-115); Magnesium 1.8 mg/dL (1.6-2.6); Potassium 4.4 mmol/L (3.5-5.1); Sodium 144 mmol/L (136-145)
[2025-03-28] MEDS: Pantoprazole 40 MG DR.TAB PO SCH (08:55)
[2025-03-28] MEDS: Acetaminophen 325 MG TAB PO PRN (12:51)
[2025-03-28] MEDS: Magnesium 2 GM/50 ML(in water) 2 GM in Premix 1 BAG IVPB SCH (12:54)
[2025-03-28] MEDS ORDERED: Furosemide 40 MG (4 mL) VIAL SLOW IVP SCH (16:00)
[2025-03-28 16:38] LABS: Fluid, pH - Pleural Fld Greater than 7.500 (7.60 - 7.66)
[2025-03-28 16:54] LABS: Fluid, Triglycerides 21.0 mg/dL (Not Available); Pleural Fluid, Amylase 44.0 U/L (Not Available); Pleural Fluid, Glucose 205.0 mg/dL; Pleural Fluid, LDH 113.0 U/L (Not Available); Pleural Fluid, Protein 3.7 g/dL
[2025-03-28 17:19] LABS: RBC Count-Automated (BF) 470 /cu.mm; WBC/Nucleated-Auto (BF) 216 /cu.mm
[2025-03-28 17:23] LABS: BF Segmented Neutrophils 14 %; Cell Count Non Hematic 13 %
[2025-03-29 04:46] LABS: Anion Gap 18 mmol/L (10-20); BUN (Urea Nitrogen) 30 mg/dL (8.4-25.7); Calc. Creatinine Clearance 73 mL/min (70-130); Calcium 8.8 mg/dL (7.8-10.44); Carbon Dioxide 28 mmol/L (23-31); Chloride 102 mmol/L (98-107); Glucose 153 mg/dL (80-115); Magnesium 1.8 mg/dL (1.6-2.6); Potassium 4.2 mmol/L (3.5-5.1); Sodium 144 mmol/L (136-145)
[2025-03-29] MEDS ORDERED: Furosemide 40 MG (4 mL) VIAL SLOW IVP SCH (06:00)
[2025-03-29] MEDS: Furosemide 40 MG (4 mL) VIAL SLOW IVP SCH (09:20)
[2025-03-29] MEDS: Magnesium 2 GM/50 ML(in water) 2 GM in Premix 1 BAG IVPB SCH (09:23)
[2025-03-29] MEDS: Insulin Glargine 30 UNITS/0.3 ML VIAL SC SCH (16:22)
[2025-03-29] MEDS: glipiZIDE 5 MG TAB PO SCH (16:23)
[2025-03-30 04:49] LABS: #Basophils Less than 0.03 10x3/uL (0.0-0.2); #Eosinophils 0.17 10x3/uL (0.0-0.7); #Monocytes 0.58 10x3/uL (0.11-0.59); #Neutrophils 3.97 10x3/uL (1.40-6.50); %Basophils 0.2 % (0.0-1.0); %Eosinophils 2.7 % (0.0-10.0); %Lymphocytes 24.8 % (21.0-51.0); %Monocytes 9.2 % (0.0-10.0); %Neutrophils 62.9 % (42.0-75.0); Hematocrit 37.9 % (42.0-52.0); Hemoglobin 12.9 g/dL (14.0-18.0); Mean Corpuscular Hemoglobin 30.7 pg (27.0-31.0); Mean Corpuscular Volume 90.2 fL (78.0-98.0); Platelet Count 136 10x3/uL (130-400); Red Blood Cell (RBC) Count 4.20 mill/uL (4.70-6.10); White Blood Cell (WBC) Count 6.30 10x3/uL (4.8-10.8)
[2025-03-30 05:02] LABS: Anion Gap 15 mmol/L (10-20); BUN (Urea Nitrogen) 32 mg/dL (8.4-25.7); Calc. Creatinine Clearance 73 mL/min (70-130); Calcium 9.0 mg/dL (7.8-10.44); Carbon Dioxide 29 mmol/L (23-31); Chloride 102 mmol/L (98-107); Glucose 186 mg/dL (80-115); Magnesium 2.4 mg/dL (1.6-2.6); Potassium 4.2 mmol/L (3.5-5.1); Sodium 142 mmol/L (136-145)
[2025-03-30] MEDS: Enoxaparin 40 MG (0.4 mL) SYRINGE SC SCH (08:55)
[2025-03-30] MEDS: Insulin Glargine 30 UNITS/0.3 ML VIAL SC SCH (08:57)
[2025-03-31 13:43] VITALS: BP 147/68; TEMP 97.8
== END 2025-03-31 14:30 | disposition home or self-care (01) | DRG 286 ==
LOC: ERS 11:41 → ERHOLD 13:49 → 2NO 16:14
PROVIDERS: ADMIT Internal Medicine; ATTEND Internal Medicine
PROC: 4A023N7 Measurement of Cardiac Sampling and Pressure, Left Heart, Percutaneous Approach (ICD-10-PCS; 2025-03-26)
PROC: B2111ZZ Fluoroscopy of Multiple Coronary Arteries using Low Osmolar Contrast (ICD-10-PCS; 2025-03-26)
PROC: 0W993ZZ Drainage of Right Pleural Cavity, Percutaneous Approach (ICD-10-PCS; principal; 2025-03-28)
DX: I13.0 Hypertensive heart and chronic kidney disease with heart failure and stage 1 through stage 4 chronic kidney disease, or unspecified chronic kidney disease (principal); I50.33 Acute on chronic diastolic (congestive) heart failure; J96.11 Chronic respiratory failure with hypoxia; I48.92 Unspecified atrial flutter; E78.5 Hyperlipidemia, unspecified; Z98.890 Other specified postprocedural states; E11.51 Type 2 diabetes mellitus with diabetic peripheral angiopathy without gangrene; Z95.1 Presence of aortocoronary bypass graft; I25.10 Atherosclerotic heart disease of native coronary artery without angina pectoris; Z87.891 Personal history of nicotine dependence; Z79.899 Other long term (current) drug therapy; I48.0 Paroxysmal atrial fibrillation; E83.42 Hypomagnesemia; N18.30 Chronic kidney disease, stage 3 unspecified; Z79.82 Long term (current) use of aspirin
CPT/HCPCS: 36216; 36225; 36415; 36416; 71045; 71046; 71250; 80048; 80053; 82150; 82945; 83615; 83735; 83880; 83986; 84157; 84478; 84484; 85025; 85060; 87116; 87206; 88112; 88305; 89051; 93005; 93306; 93459; 93798; 94760; 96374; 97139; 99152; 99153; C1769; C1887; C1894; J0153; J0461; J1644; J1650; J1815; J1940; J2003; J2250; J3010; J3475; J7030; Q9967